=== PATIENT | female | born 1940 | race Caucasian/White ===

== ENCOUNTER → 2018-07-31 09:45 | Outpatient (CLI) | payer MEDICARE, SELFPAY ==
[2018-07-31 12:20] LABS: Absolute Neutrophil Count 5.6 X10^3/uL (2.0-7.7); Basophil# 0.03 X10^3/uL; Basophil% 0.3 % (0-1); Eosinophil# 0.19 X10^3/uL; Eosinophils% 2.2 % (0-5); Hematocrit 45.8 % (37-47); Hemoglobin 15.3 g/dl (12.0-15.0); Mean Corp Hgb Conc 33.4 g/gl (32-36); Mean Corpuscular Hgb 28.5 pg (27.0-32.0); Mean Corpuscular Volume 85.4 fL (81-99); Mean Platelet Vol. 9.8 fl (6.2-12.0); Monocyte# 0.66 X10^3/uL; Monocyte% 7.5 % (0-10); Neutrophil # 5.63 X10^3/uL (2.7-7.7); Neutrophil % 63.8 % (47-70); Platelet Count 238 K/mm3 (150-450); RBC Distribution Width CV 13.5 % (11.6-14.6); RBC Distribution Width SD 42.2 fl (35.1-43.9); Red Blood Count 5.36 M/mm3 (4.2-5.4); White Blood Count 8.8 K/mm3 (4.4-11.0)
[2018-07-31 12:24] LABS: Color, Urine Yellow (Yellow); Glucose, Dipstick Normal (Normal); Ketone-Dipstick Negative (Negative); Leukocyte Esterase-Dipstick Negative /ul (Negative); Nitrite-Dipstick Negative (Negative); Occult Blood-Urine Negative /ul (Negative); Protein-Dipstick Negative (Negative); Specific Gravity, Urine 1.015 (1.002-1.030); Urine Bilirubin Dipstick Negative (Negative); Urine Clarity Clear (Clear); Urine Urobilinogen Normal (Normal)
[2018-07-31 12:25] LABS: POSITIVE COUNT NO; POSITIVE DIFFERENTIAL NO; POSITIVE MORPHOLOGY NO
[2018-07-31 12:28] LABS: Cholesterol 207 mg/dL (200); High Density Lipoprotein 43 mg/dL; Triglycerides 232 mg/dL; Very Low Density Lipoprotein 46 mg/dL (5-40)
== END ==
PROVIDERS: Family Provider Family Medicine; PCP Family Medicine; Visit Provider Family Medicine
DX: Z00.00 Encounter for general adult medical examination without abnormal findings (principal); I10 Essential (primary) hypertension; E78.5 Hyperlipidemia, unspecified; I49.9 Cardiac arrhythmia, unspecified
CPT/HCPCS: 36415; 80061; 81002; 85025

== ENCOUNTER → 2018-09-19 07:55 | Outpatient (CLI) | payer MEDICARE, SELFPAY ==
--- NOTE | 2018-09-19 07:59 | BI_ITS ---
MAMMOGRAPHY - BILATERAL SCREENING REASON FOR EXAM: Female, 78 years old. Routine annual screening examination. PERTINENT HISTORY: Mother with breast cancer. TECHNIQUE: Digital bilateral breast guerline (3D mammographic acquisition) in the CC and MLO projections. 2-D mediolateral oblique (MLO) and craniocaudad (CC) views of both breasts were obtained. CAD: Full Field Digital Mammography with Computer Added Detection was performed. COMPARISON: Comparison is made with prior examination dated August 30, 2017 and August 04, 2016. FINDINGS: Breast Composition: There are scattered areas of fibroglandular density. There are no dominant masses or suspicious calcifications. Once again, there are multiple small breast nodules bilaterally. These are unchanged. No focal cluster microcalcification is seen. No other significant abnormalities are identified. There has been no significant change since the prior study. BI/SCREENING MAMM (CAD), BILAT IMPRESSION: Stable bilateral screening mammogram. Yearly follow-up mammogram recommended. (A) ASSESSMENT CATEGORY: BIRADS Category 2: Benign. A letter regarding these results will be sent to the patient by the facility within 30 days. Approximately 10% of breast cancers are not detected by mammography. A normal mammogram should not delay biopsy of a clinically suspicious abnormality. [id number] Electronically Signed: Sterling Garnica MD at 9:21 EST Tel [phone], Service support ,
== END ==
PROVIDERS: Family Provider Family Medicine; PCP Family Medicine; Referring Provider Family Medicine; Visit Provider Family Medicine
DX: Z12.31 Encounter for screening mammogram for malignant neoplasm of breast (principal)
CPT/HCPCS: 77063; 77067

== ENCOUNTER → 2019-05-24 09:19 | Outpatient (CLI) | payer MEDICARE, SELFPAY ==
[2019-01-31 08:18] VITALS: BMI 31.0
--- NOTE | 2019-05-24 09:25 | US_ITS ---
STUDY: RENAL ULTRASOUND - COMPLETE REASON FOR EXAM: Female, 79 years old. Recurring UTIs TECHNIQUE: Ultrasound evaluation of the kidneys was performed with real-time and static garcía-scale imaging. COMPARISON: None. FINDINGS: RIGHT KIDNEY: Normal location of the right kidney, which is normal in size. The right kidney measures 11.0 x 5.6 x 5.2 cm. There is a normal cortex of the right kidney. The renal cortex measures 1.0 cm. There is no right renal mass or cyst. There are no right renal calculi. There is no right hydronephrosis. DISTAL RIGHT URETER: There is non-visualization of the distal right ureter. There is no demonstrated right ureterovesical junction calculus. There is a visualized right ureteral jet. LEFT KIDNEY: Normal location of the left kidney, which is normal in size. The left kidney measures 12.1 x 4.6 x 4.8 cm. There is a normal cortex of the left kidney. The renal cortex measures 1.5 cm. There is a hyperechoic nodule in the inferior pole which needs further evaluation with CT or MRI. There are no left renal calculi. There is no left hydronephrosis. DISTAL LEFT URETER: There is non-visualization of the distal left ureter. There is no demonstrated left ureterovesical junction calculus. There is a visualized left ureteral jet. AORTA: There is no elongation or tortuosity of the abdominal aorta. I.V.C.: The IVC is patent. BLADDER: The bladder is incompletely distended. US/Kidney and Bladder IMPRESSION: No obstructive uropathy, there is a hyperechoic nodule in the inferior pole the left kidney measuring 1.5 cm. Further evaluation with CT or MRI recommended Electronically Signed: Douglas Acosta MD at 16:59 EDT , Service support ,
== END ==
PROVIDERS: Family Provider Family Medicine; PCP Family Medicine; Referring Provider Urology; Visit Provider Urology
DX: N39.0 Urinary tract infection, site not specified (principal)
CPT/HCPCS: 76770

== ENCOUNTER → 2019-06-05 07:25 | Outpatient (CLI) | payer MEDICARE, SELFPAY ==
[2019-01-31 08:18] VITALS: BMI 31.0
--- NOTE | 2019-06-05 07:28 | CT_ITS ---
STUDY: CT ABDOMEN AND PELVIS WITH AND WITHOUT CONTRAST REASON FOR EXAM: Female, 79 years old. Recurrent UTIs RADIATION DOSAGE (If Supplied By Facility): CTDIvol = ( 23.88 ) mGy, DLP = ( 3684.81 ) mGycm TECHNIQUE: Transaxial images were obtained from the dome of the diaphragm to the symphysis pubis without oral contrast. 100 IV Isovue 300 was administered. Sagittal and coronal images were reconstructed. Individualized dose optimization techniques were used for this CT. COMPARISON: Previous ultrasounds FINDINGS: The visualized lung bases are unremarkable. The visualized portions of the heart are within normal limits. There is decreased attenuation of the liver consistent with steatosis. There are surgical clips in the gallbladder fossa consistent with a prior cholecystectomy. Normal spleen, there is also a 1 cm accessory spleen noted. Normal pancreas. Normal bilateral adrenal glands. No obstructive uropathy, there is a nonobstructing 3 mm stone in the mid left kidney. There is age consistent cortical thinning in both kidneys with extrarenal pelves. The previously identified hyperechoic mass in the lower pole of the left kidney contains fat by CT and likely represents an angiomyolipoma. There is a small hiatal hernia. Normal small intestine. There are multiple colonic diverticula consistent with diverticulosis. The appendix is visualized and appears normal. Appendix best seen on coronal recon image 78. There is diffuse atherosclerotic calcification of the abdominal aorta, without a demonstrated aneurysm. Normal inferior vena cava. Normal retroperitoneum. Normal urinary bladder. There is absence of the uterus consistent with a prior hysterectomy. Normal abdominal wall. There are diffuse degenerative changes of the visualized lumbar spine, and pelvis. Nonspecific sclerotic foci noted in the iliac bones. CT/CT Abd/Pelvis W/WO Contrast IMPRESSION: No obstructive uropathy. Age consistent changes noted in both kidneys. There is nonobstructing left nephrolithiasis and a previously identified mass in the lower pole the left kidney contains fat and likely represents angiomyolipoma Fatty liver, no discrete lesion Colonic diverticulosis Hiatal hernia Degenerative bony changes Electronically Signed: Douglas Acosta MD at 8:15 EDT , Service support ,
[2019-06-05 07:55] LABS: CREATININE FINGERSTICK 0.7 mg/dL (0.55-1.02)
== END ==
PROVIDERS: Family Provider Family Medicine; PCP Family Medicine; Referring Provider Urology; Visit Provider Urology
DX: R93.41 Abnormal radiologic findings on diagnostic imaging of renal pelvis, ureter, or bladder (principal)
CPT/HCPCS: 74178; Q9967

== ENCOUNTER → 2019-08-07 08:32 | Outpatient (CLI) | payer MEDICARE, SELFPAY ==
[2019-01-31 08:18] VITALS: BMI 31.0
[2019-08-07 09:39] LABS: Absolute Lymphocyte Count 2.63 X10^3/uL (0.83-4.51); Absolute Neutrophil Count 4.9 X10^3/uL (2.0-7.7); Basophil# 0.06 X10^3/uL; Basophil% 0.7 % (0-1); Eosinophil# 0.37 X10^3/uL; Eosinophils% 4.3 % (0-5); Hematocrit 48.4 % (37-47); Hemoglobin 15.7 g/dL (12.0-15.0); Lymphocyte # 2.63 X10^3/ul (4.0); Lymphocyte % 30.3 % (19-41); Mean Corp Hgb Conc 32.4 g/dL (32-36); Mean Corpuscular Hgb 28.1 pg (27.0-32.0); Mean Corpuscular Volume 86.7 fL (81-99); Monocyte# 0.64 X10^3/uL; Monocyte% 7.4 % (0-10); NRBC Flagged by Analyzer 0 % (0-5); Neutrophil # 4.94 X10^3/uL (2.7-7.7); Platelet Count 242 K/mm3 (150-450); RBC Distribution Width CV 13.4 % (11.6-14.6); RBC Distribution Width SD 42.5 fl (35.1-43.9); Red Blood Count 5.58 M/mm3 (4.2-5.4); White Blood Count 8.7 K/mm3 (4.4-11.0)
[2019-08-07 09:40] LABS: Color, Urine Yellow (Yellow); Glucose, Dipstick Normal (Normal); Ketone-Dipstick Negative (Negative); Leukocyte Esterase-Dipstick Negative /ul (Negative); Nitrite-Dipstick Negative (Negative); Occult Blood-Urine Negative /ul (Negative); Protein-Dipstick Negative (Negative); Specific Gravity, Urine 1.015 (1.002-1.030); Urine Bilirubin Dipstick Negative (Negative); Urine Clarity Sl. Cloudy (Clear); Urine Urobilinogen Normal (Normal)
[2019-08-07 10:06] LABS: ALB/GLOB Ratio 0.9 RATIO (0.9-2.4); AST(SGOT) 17 U/L (15-37); Alanine Aminotransfer ALT/SGPT 27 U/L (13-56); Albumin, Serum 3.5 g/dL (3.2-5.0); Alkaline Phosphatase 67 U/L (45-117); Anion Gap 6 (5-15); BUN 16 mg/dL (7-18); BUN/Creat Ratio 20.3 RATIO (10-20); Calcium,Total 8.7 mg/dL (8.5-10.1); Chloride 105 mmol/L (98-107); Cholesterol 202 mg/dL (200); Creatinine, Serum 0.79 mg/dL (0.55-1.02); EST Glomerular Filtration Rate 75 mL/min (>60); Est Glom Filt Rate - Afr Amer 91 mL/min (>60); Glucose 97 mg/dL (74-106); High Density Lipoprotein 41 mg/dL; Potassium 4.2 mmol/L (3.5-5.1); Protein, Total 7.5 g/dL (6.4-8.2); Sodium Level 141 mmol/L (136-145); Triglycerides 245 mg/dL; Very Low Density Lipoprotein 49 mg/dL (5-40)
== END ==
PROVIDERS: Family Provider Family Medicine; PCP Family Medicine; Referring Provider Family Medicine
DX: Z00.00 Encounter for general adult medical examination without abnormal findings (principal); I10 Essential (primary) hypertension; E78.5 Hyperlipidemia, unspecified
CPT/HCPCS: 80053; 80061; 81002; 85025

== ENCOUNTER → 2019-09-20 08:32 | Outpatient (CLI) | payer MEDICARE, SELFPAY ==
[2019-01-31 08:18] VITALS: BMI 31.0
--- NOTE | 2019-09-20 08:34 | BI_ITS ---
MAMMOGRAPHY - BILATERAL SCREENING REASON FOR EXAM: Female, 79 years old. Routine annual screening examination. PERTINENT HISTORY: Mother with breast cancer. TECHNIQUE: Digital bilateral breast jean (3D mammographic acquisition) in the CC and MLO projections. 2-D mediolateral oblique (MLO) and craniocaudad (CC) views of both breasts were obtained. CAD: Full Field Digital Mammography with Computer Added Detection was performed. COMPARISON: Comparison is made with prior study dated September 19, 2018 and August 30, 2017. FINDINGS: Breast Composition: There are scattered areas of fibroglandular density. There are no dominant masses or suspicious calcifications. Once again, there are multiple small bilateral breast nodules. These are not changed since multiple prior studies. No other significant abnormalities are identified. There has been no significant change since the prior study. BI/SCREEN MAMM (CAD) W/JEAN BILAT IMPRESSION: Stable bilateral screening mammogram. Yearly follow-up mammogram recommended. (A) ASSESSMENT CATEGORY: BIRADS Category 2: Benign. A letter regarding these results will be sent to the patient by the facility within 30 days. Approximately 10% of breast cancers are not detected by mammography. A normal mammogram should not delay biopsy of a clinically suspicious abnormality. [id number] Electronically Signed: Sterling Garnica, at 10:22 EST , Service support ,
== END ==
PROVIDERS: Family Provider Family Medicine; PCP Family Medicine; Referring Provider Family Medicine; Visit Provider Family Medicine
DX: Z12.31 Encounter for screening mammogram for malignant neoplasm of breast (principal); Z80.3 Family history of malignant neoplasm of breast
CPT/HCPCS: 77063; 77067

== ENCOUNTER → 2020-08-14 12:26 | Outpatient (CLI) | payer MEDICARE, SELFPAY ==
[2019-09-26 14:40] VITALS: BMI 30.8
--- NOTE | 2020-08-14 12:29 | US_ITS ---
STUDY: RENAL ULTRASOUND - COMPLETE REASON FOR EXAM: Female, 80 years old. 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 COMPARISON: Comparison is made with prior study dated 05/24/2019. FINDINGS: RIGHT KIDNEY: Normal location of the right kidney, which is normal in size. The right kidney measures 11.6 cm x 6.1 cm x 5.8 cm. There is a normal cortex of the right kidney. The renal cortex measures 1.3 cm. There is no right renal mass or cyst. There are no right renal calculi. There is no right hydronephrosis. DISTAL RIGHT URETER: There is non-visualization of the distal right ureter. There is no demonstrated right ureterovesical junction calculus. There is no demonstrated right ureteral jet. LEFT KIDNEY: Normal location of the left kidney, which is normal in size. The left kidney measures 10.8 cm x 5.7 cm x 6.4 cm. There is a normal cortex of the left kidney. The renal cortex measures 1.8 cm. There is a 2.2 cm x 1.3 cm x 1.3 cm echogenic nodule in the lower pole of the left kidney suggestive of a benign angiomyolipoma. There are no left renal calculi. There is no left hydronephrosis. DISTAL LEFT URETER: There is non-visualization of the distal left ureter. There is no demonstrated left ureterovesical junction calculus. There is a visualized left ureteral jet. BLADDER: The distended urinary bladder has a volume of 382 ml. There is a normal wall thickness of the distended urinary bladder. There is no demonstrated mass within the urinary bladder. There are no demonstrated bladder calculi. US/Kidney and Bladder IMPRESSION: 2.2 cm x 1.3 cm x 1.3 cm echogenic nodule in the inferior pole of the left kidney as described. This most likely represents an angiomyolipoma. Electronically Signed: Sterling Garnica, at 14:54 EDT , Service support ,
== END ==
PROVIDERS: PCP Family Medicine; Referring Provider Urology; Visit Provider Urology
DX: D30.02 Benign neoplasm of left kidney (principal)
CPT/HCPCS: 76770

== ENCOUNTER → 2020-09-02 08:27 | Outpatient (CLI) | payer MEDICARE, SELFPAY ==
[2019-09-26 14:40] VITALS: BMI 30.8
[2020-09-02 08:54] LABS: Absolute Lymphocyte Count 3.25 X10^3/uL (0.83-4.51); Absolute Neutrophil Count 4.7 X10^3/uL (2.0-7.7); Basophil# 0.04 X10^3/uL; Basophil% 0.5 % (0-1); Eosinophil# 0.33 X10^3/uL; Eosinophils% 3.7 % (0-5); Hematocrit 49.6 % (37-47); Hemoglobin 15.6 g/dL (12.0-15.0); Lymphocyte # 3.25 X10^3/ul (4.0); Lymphocyte % 36.6 % (19-41); Mean Corp Hgb Conc 31.5 g/dL (32-36); Mean Corpuscular Hgb 27.4 pg (27.0-32.0); Mean Platelet Vol. 9.1 fl (6.2-12.0); Monocyte# 0.59 X10^3/uL; Monocyte% 6.6 % (0-10); NRBC Flagged by Analyzer 0 % (0-5); Neutrophil # 4.65 X10^3/uL (2.7-7.7); Neutrophil % 52.4 % (47-70); Platelet Count 248 K/mm3 (150-450); RBC Distribution Width CV 13.2 % (11.6-14.6); RBC Distribution Width SD 42.3 fl (35.1-43.9); White Blood Count 8.9 K/mm3 (4.4-11.0)
[2020-09-02 08:55] LABS: Color, Urine Yellow (Yellow); Glucose, Dipstick Normal (Normal); Ketone-Dipstick Negative (Negative); Leukocyte Esterase-Dipstick 25 /ul (Negative); Nitrite-Dipstick Positive (Negative); Occult Blood-Urine Negative /ul (Negative); Protein-Dipstick Negative (Negative); Specific Gravity, Urine 1.015 (1.002-1.030); Urine Bilirubin Dipstick Negative (Negative); Urine Clarity Clear (Clear); Urine Urobilinogen Normal (Normal)
[2020-09-02 09:22] LABS: Cholesterol 209 mg/dL (200); High Density Lipoprotein 44 mg/dL; Triglycerides 296 mg/dL; Very Low Density Lipoprotein 59 mg/dL (5-40)
== END ==
PROVIDERS: PCP Family Medicine; Referring Provider Family Medicine; Visit Provider Family Medicine
DX: Z00.00 Encounter for general adult medical examination without abnormal findings (principal); I10 Essential (primary) hypertension; E78.5 Hyperlipidemia, unspecified
CPT/HCPCS: 36415; 80061; 81002; 85025

== ENCOUNTER → 2020-10-15 15:30 | Outpatient (CLI) | payer MEDICARE, SELFPAY ==
[2019-09-26 14:40] VITALS: BMI 30.8
[2020-09-29 14:56] VITALS: BMI 30.3
--- NOTE | 2020-10-15 15:33 | BI_ITS ---
MAMMOGRAPHY - BILATERAL SCREENING REASON FOR EXAM: Female, 80 years old. Routine annual screening examination. PERTINENT HISTORY: Mother with breast cancer. TECHNIQUE: Digital bilateral breast jean (3D mammographic acquisition) in the CC and MLO projections. 2-D mediolateral oblique (MLO) and craniocaudad (CC) views of both breasts were obtained. CAD: Full Field Digital Mammography with Computer Added Detection was performed. COMPARISON: Comparison is made with prior study dated 09/20/2019 and 09/19/2018. FINDINGS: Breast Composition: There are scattered areas of fibroglandular density. There are no dominant masses or suspicious calcifications. Once again, there are multiple small bilateral breast nodules. These are unchanged. No other significant abnormalities are identified. There has been no significant change since the prior study. BI/SCREEN MAMM (CAD) W/JEAN BILAT IMPRESSION: Stable bilateral screening mammogram. Yearly follow-up mammogram recommended. (A) ASSESSMENT CATEGORY: BIRADS Category 2: Benign. A letter regarding these results will be sent to the patient by the facility within 30 days. Approximately 10% of breast cancers are not detected by mammography. A normal mammogram should not delay biopsy of a clinically suspicious abnormality. [id number] Electronically Signed: Sterling Garnica, at 8:01 EST , Service support ,
== END ==
PROVIDERS: PCP Family Medicine; Referring Provider Family Medicine; Visit Provider Family Medicine
DX: Z12.31 Encounter for screening mammogram for malignant neoplasm of breast (principal)
CPT/HCPCS: 77063; 77067

== ENCOUNTER → 2021-08-17 09:48 | Outpatient (CLI) | payer MEDICARE, SELFPAY ==
[2020-09-29 14:56] VITALS: BMI 30.3
--- NOTE | 2021-08-17 09:56 | US_ITS ---
INDICATION: Benign neoplasm of left kidney EXAMINATION: Ultrasound US Kidney(s) complete (eg, kidneys and bladder) TECHNIQUE: Bob scale and color doppler images were obtained of the kidneys. COMPARISON: 08/14/2020. FINDINGS: RIGHT KIDNEY: The right kidney measures 11.8 x 5.6 x 6.4 cm. Right renal cortex measures 1.2 cm.. There is no hydronephrosis. No shadowing calculus, focal lesion or perinephric collection is demonstrated. LEFT KIDNEY: The left kidney measures 11.4 x 4.6 x 6.4 cm. Left renal cortex measures 1.0 cm.. There is no hydronephrosis. No evidence of left renal stones visualized. There is a circumscribed hyperechoic lesion visualized in the lower pole of the left kidney measuring 1.8 x 1.7 x 1.5 cm. No evidence of posterior acoustic shadowing to suggest a stone, this was seen on the prior study where it had measured 2.2 x 1.3 x 1.3 cm URINARY BLADDER: Unremarkable anechoic internal echogenicity of the urinary bladder, no evidence of urinary bladder wall thickening is visualized, bilateral ureteral jets are visualized and unremarkable. The urinary bladder measures 10.9 x 7.5 x 9.6 cm with a prevoid volume of 411.13 mL. US/Kidney and Bladder IMPRESSION: Hyperechoic lesion in the lower pole of the left kidney demonstrates no significant increase in size in comparison to the prior study. Electronically Signed: Gabe Mantilla MD at 15:18 EDT Tel , Service support ,
== END ==
PROVIDERS: PCP Family Medicine; Referring Provider Urology; Visit Provider Urology
DX: D30.02 Benign neoplasm of left kidney (principal)
CPT/HCPCS: 76770

== ENCOUNTER → 2021-08-26 08:11 | Outpatient (CLI) | payer MEDICARE, SELFPAY ==
[2021-08-26 09:05] LABS: Absolute Lymphocyte Count 2.47 X10^3/uL (0.83-4.51); Absolute Neutrophil Count 4.8 X10^3/uL (2.0-7.7); Basophil# 0.04 X10^3/uL; Basophil% 0.5 % (0-1); Eosinophil# 0.38 X10^3/uL; Eosinophils% 4.6 % (0-5); Hematocrit 49.8 % (37-47); Hemoglobin 16.2 g/dL (12.0-15.0); Lymphocyte # 2.47 X10^3/ul (0.83-4.51); Lymphocyte % 29.6 % (19-41); Mean Corp Hgb Conc 32.5 g/dL (32-36); Mean Corpuscular Hgb 28.5 pg (27.0-32.0); Mean Corpuscular Volume 87.7 fL (81-99); Mean Platelet Vol. 9.5 fl (6.2-12.0); Monocyte# 0.65 X10^3/uL; Monocyte% 7.8 % (0-10); NRBC Flagged by Analyzer 0 % (0-5); Neutrophil # 4.77 X10^3/uL (2.7-7.7); Platelet Count 194 K/mm3 (150-450); RBC Distribution Width CV 14.2 % (11.6-14.6); RBC Distribution Width SD 45.9 fl (35.1-43.9); Red Blood Count 5.68 M/mm3 (4.2-5.4); White Blood Count 8.4 K/mm3 (4.4-11.0)
[2021-08-26 09:35] LABS: ALB/GLOB Ratio 0.8 RATIO (0.9-2.4); AST(SGOT) 14 U/L (15-37); Alanine Aminotransfer ALT/SGPT 32 U/L (13-56); Alkaline Phosphatase 56 U/L (45-117); Anion Gap 6 (5-15); BUN 17 mg/dL (7-18); BUN/Creat Ratio 18.9 RATIO (10-20); Calcium,Total 8.5 mg/dL (8.5-10.1); Chloride 104 mmol/L (98-107); Cholesterol 204 mg/dL (200); EST Glomerular Filtration Rate 64 mL/min (>60); Est Glom Filt Rate - Afr Amer 77 mL/min (>60); Globulin 3.9 g/dL (2.2-4.2); Glucose 103 mg/dL (74-106); High Density Lipoprotein 45 mg/dL; Potassium 4.1 mmol/L (3.5-5.1); Protein, Total 6.9 g/dL (6.4-8.2); Sodium Level 140 mmol/L (136-145); Triglycerides 214 mg/dL; Very Low Density Lipoprotein 43 mg/dL (5-40)
== END ==
PROVIDERS: PCP Family Medicine; Visit Provider Family Medicine
DX: Z12.31 Encounter for screening mammogram for malignant neoplasm of breast (principal); I10 Essential (primary) hypertension; E78.5 Hyperlipidemia, unspecified
CPT/HCPCS: 36415; 80053; 80061; 85025

== ENCOUNTER → 2021-10-16 10:03 | Outpatient (CLI) | payer MEDICARE, SELFPAY ==
--- NOTE | 2021-10-16 10:25 | BI_ITS ---
MAMMOGRAPHY - BILATERAL SCREENING REASON FOR EXAM: Female, 81 years old. Routine annual screening examination. PERTINENT HISTORY: Mother with breast cancer. TECHNIQUE: Digital bilateral breast jean (3D mammographic acquisition) in the CC and MLO projections. 2-D mediolateral oblique (MLO) and craniocaudad (CC) views of both breasts were obtained. CAD: Full Field Digital Mammography with Computer Added Detection was performed. COMPARISON: Comparison is made with prior study dated 10/15/2020. FINDINGS: Breast Composition: There are scattered areas of fibroglandular density. There are no dominant masses or suspicious calcifications. Once again, there are multiple small bilateral breast nodules. These are unchanged. No other significant abnormalities are identified. There has been no significant change since the prior study. BI/SCRN MAMM (CAD)W/JEAN BILAT IMPRESSION: Stable bilateral screening mammogram. Yearly follow-up mammogram recommended. (A) ASSESSMENT CATEGORY: BIRADS Category 2: Benign. A letter regarding these results will be sent to the patient by the facility within 30 days. Approximately 10% of breast cancers are not detected by mammography. A normal mammogram should not delay biopsy of a clinically suspicious abnormality. [id number] Electronically Signed: Sterling Garnica MD at 13:33 EST , Service support ,
== END ==
PROVIDERS: PCP Family Medicine; Referring Provider Family Medicine; Visit Provider Family Medicine
DX: Z12.31 Encounter for screening mammogram for malignant neoplasm of breast (principal); Z80.3 Family history of malignant neoplasm of breast
CPT/HCPCS: 77063; 77067

== ENCOUNTER → 2021-10-27 13:37 | Outpatient (CLI) | payer MEDICARE, SELFPAY ==
--- NOTE | 2021-10-27 13:40 | ECHOD_ITS ---
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 The study was technically difficult. Exam performed in department. Left Ventricle Normal LV size. Left ventricular systolic function is normal. The estimated ejection fraction is 65 %. No evidence for diastolic dysfunction. No regional wall motion abnormalities noted. Right Ventricle Normal RV size. Normal systolic function. Atria Normal left atrium. Normal right atrium. No doppler evidence for ASD. Mitral Valve There is mild mitral annular calcification. Normal mitral valve. Mild (1+) mitral valve insufficiency. Tricuspid Valve Normal tricuspid valve. Mild tricuspid valve insufficiency. Right ventricular systolic pressure estimated to be 32 mmHg. Aortic Valve Trisinus/trileaflet aortic valve. Mild focal aortic valve calcification. Pulmonic Valve The pulmonic valve is not well visualized. Trivial pulmonic valve insufficiency. Great Vessels Normal sized aortic root. Pericardium/Pleural No pericardial effusion. MMode/2D Measurements & Calculations LVIDd: 4.6 cm IVSd: 1.4 cm Ao root diam: 3.1 cm LVIDs: 3.0 cm LVPWd: 0.92 cm RVDd: 3.5 cm FS: 34.6 % LAV(MOD-bp): 48.8 ml LA A4 area: 17.5 cm2 LA dimension(2D): 4.0 cm LAV(MOD-bp) Indexed: 24.3 ml/m2 LAV(MOD-sp2): 49.2 ml LAV(MOD-sp4): 45.7 ml RA A4 area: 13.9 cm2 Doppler Measurements & Calculations MV E max conrado: 45.6 cm/sec Lat Peak E' Conrado: 8.9 cm/sec Med Peak E' Conrado: 5.7 cm/sec MV A max conrado: 72.4 cm/sec E/E' lat: 5.1 E/E' med: 8.0 MV E/A: 0.63 Ao V2 max: 130.6 cm/sec LV V1 max: 67.9 cm/sec PA V2 max: 87.9 cm/sec Ao max P.8 mmHg LV V1 max P.8 mmHg TR max conrado: 267.3 cm/sec TR max P.6 mmHg ECHO/Echo Complete Interpretation Summary The study was technically difficult. Left ventricular systolic function is normal. The estimated ejection fraction is 65 %. There is mild mitral annular calcification. Mild (1+) mitral valve insufficiency. Mild tricuspid valve insufficiency. Mild focal aortic valve calcification. Trivial pulmonic valve insufficiency. Right ventricular systolic pressure estimated to be 32 mmHg. No evidence for diastolic dysfunction. Ordering Physician: Aleida Kidd Referring Physician: Eliot Odom Performed By: Telly, Mela, RDCS, RVT
== END ==
PROVIDERS: PCP Family Medicine; Referring Provider Nurse Practitioner Gerontology; Visit Provider Nurse Practitioner Gerontology
DX: I36.1 Nonrheumatic tricuspid (valve) insufficiency (principal); I34.0 Nonrheumatic mitral (valve) insufficiency
CPT/HCPCS: 93306

== ENCOUNTER → 2022-11-03 | Outpatient (CLI) | payer MEDICARE, SELFPAY ==
[2022-11-03 11:26] LABS: AST(SGOT) 14 U/L (15-37); Alanine Aminotransfer ALT/SGPT 30 U/L (13-56); Albumin, Serum 3.2 g/dL (3.2-5.0); Alkaline Phosphatase 55 U/L (45-117); Bilirubin, Direct 0.14 mg/dL (0.00-0.30); Cholesterol 192 mg/dL (200); Globulin 3.9 g/dL (2.2-4.2); High Density Lipoprotein 38 mg/dL; Protein, Total 7.1 g/dL (6.4-8.2); Triglycerides 154 mg/dL; Very Low Density Lipoprotein 31 mg/dL (5-40)
== END | disposition home or self-care (01) ==
LOC: LAB 09:30
PROVIDERS: PCP Internal Medicine; Referring Provider Internal Medicine Cardiovascular Disease; Visit Provider Internal Medicine Cardiovascular Disease
DX: E78.00 Pure hypercholesterolemia, unspecified (principal)
CPT/HCPCS: 36415; 80061; 80076

== ENCOUNTER → 2022-11-16 | Outpatient (CLI) | payer MEDICARE, SELFPAY | END | disposition home or self-care (01) | LOC: PSN 10:28 | PROVIDERS: PCP Internal Medicine; Referring Provider Internal Medicine Cardiovascular Disease; Visit Provider Internal Medicine Cardiovascular Disease | DX: I49.3 Ventricular premature depolarization (principal) | CPT/HCPCS: 93225; 93226 ==

== ENCOUNTER → 2022-11-17 | Outpatient (CLI) | payer MEDICARE, SELFPAY ==
--- NOTE | 2022-11-17 12:14 | BI_ITS ---
MAMMOGRAPHY - BILATERAL SCREENING REASON FOR EXAM: Female, 82 years old. Routine annual screening examination. PERTINENT HISTORY: Mother with breast cancer. Remote left excisional breast biopsy. TECHNIQUE: Digital bilateral breast jean (3D mammographic acquisition) in the CC and MLO projections. 2-D mediolateral oblique (MLO) and craniocaudad (CC) views of both breasts were obtained. CAD: Full Field Digital Mammography with Computer Added Detection was performed. COMPARISON: Comparison is made with prior study dated 10/16/2021 and 10/15/2020. FINDINGS: Breast Composition: There are scattered areas of fibroglandular density. There are no dominant masses or suspicious calcifications. Once again, there are multiple tiny bilateral breast nodules. These are unchanged. No other significant abnormalities are identified. There has been no significant change since the prior study. BI/SCRN MAMM (CAD)W/JEAN BILAT IMPRESSION: Stable bilateral screening mammogram. Correlation with ultrasound of both breasts is recommended for further evaluation. ASSESSMENT CATEGORY: BIRADS Category 0: Incomplete. Need additional imaging evaluation. A letter regarding these results will be sent to the patient by the facility within 30 days. Approximately 10% of breast cancers are not detected by mammography. A normal mammogram should not delay biopsy of a clinically suspicious abnormality. [id number] Electronically Signed: Sterling Garnica MD at 14:14 EST ,
== END | disposition home or self-care (01) ==
LOC: OPBI 12:13
PROVIDERS: PCP Internal Medicine; Visit Provider Internal Medicine
DX: Z12.31 Encounter for screening mammogram for malignant neoplasm of breast (principal); Z80.3 Family history of malignant neoplasm of breast
CPT/HCPCS: 77063; 77067

== ENCOUNTER → 2022-11-22 | Outpatient (CLI) | payer MEDICARE, SELFPAY ==
--- NOTE | 2022-11-22 13:40 | US_ITS ---
STUDY: ULTRASOUND BREAST - RIGHT REASON FOR EXAM: Female, 82 years old. Bilateral breast nodules. TECHNIQUE: Axial and longitudinal images of the RIGHT breast were performed with a high resolution ultrasound transducer. # OF IMAGES: 147 COMPARISON: Comparison is made with prior mammogram dated 11/17/2022.. FINDINGS: RIGHT Breast: Multiple tiny cysts are seen. The largest cyst in the right breast measures 4 mm x 5 mm x 3 mm. There is also evidence of dilated ducts. Incidental note is also made of 2 benign appearing right axillary lymph nodes. IMPRESSION: Multiple small cysts are seen in the right breast as well as dilated subareolar ducts. ASSESSMENT CATEGORY: BIRADS Category 2: Benign. A letter regarding these results will be sent to the patient by the facility within 30 days. Electronically Signed: Sterling Garnica MD at 9:05 EST , STUDY: ULTRASOUND BREAST - LEFT REASON FOR EXAM: Female, 82 years old. Small breast nodules. TECHNIQUE: Axial and longitudinal images of the LEFT breast were performed with a high resolution ultrasound transducer. # OF IMAGES: 147 COMPARISON: Comparison is made with prior mammogram dated 11/17/2022. FINDINGS: LEFT Breast: Multiple small cysts are seen. The largest cyst measures 6 mm x 7 mm x 4 mm. The patient has a palpable lump in the superior sternal region in the midline. This corresponds to a 1.8 cm x 2.3 cm x 0.7 cm hypoechoic nodule. Clinical correlation recommended. US/Breast Complete Unilateral IMPRESSION: Multiple small cysts. A palpable lump was felt by the patient in the midline overlying the sternal region. This measures 1.8 cm x 2.3 cm x 0.7 cm. Clinical correlation is recommended. ASSESSMENT CATEGORY: BIRADS Category 2: Benign. A letter regarding these results will be sent to the patient by the facility within 30 days. Electronically Signed: Sterling Garnica MD at 9:07 EST ,
--- NOTE | 2022-11-22 13:40 | US_ITS ---
STUDY: ULTRASOUND BREAST - RIGHT REASON FOR EXAM: Female, 82 years old. Bilateral breast nodules. TECHNIQUE: Axial and longitudinal images of the RIGHT breast were performed with a high resolution ultrasound transducer. # OF IMAGES: 147 COMPARISON: Comparison is made with prior mammogram dated 11/17/2022.. FINDINGS: RIGHT Breast: Multiple tiny cysts are seen. The largest cyst in the right breast measures 4 mm x 5 mm x 3 mm. There is also evidence of dilated ducts. Incidental note is also made of 2 benign appearing right axillary lymph nodes. IMPRESSION: Multiple small cysts are seen in the right breast as well as dilated subareolar ducts. ASSESSMENT CATEGORY: BIRADS Category 2: Benign. A letter regarding these results will be sent to the patient by the facility within 30 days. Electronically Signed: Sterling Garnica MD at 9:05 EST , STUDY: ULTRASOUND BREAST - LEFT REASON FOR EXAM: Female, 82 years old. Small breast nodules. TECHNIQUE: Axial and longitudinal images of the LEFT breast were performed with a high resolution ultrasound transducer. # OF IMAGES: 147 COMPARISON: Comparison is made with prior mammogram dated 11/17/2022. FINDINGS: LEFT Breast: Multiple small cysts are seen. The largest cyst measures 6 mm x 7 mm x 4 mm. The patient has a palpable lump in the superior sternal region in the midline. This corresponds to a 1.8 cm x 2.3 cm x 0.7 cm hypoechoic nodule. Clinical correlation recommended. US/Breast Complete Unilateral IMPRESSION: Multiple small cysts. A palpable lump was felt by the patient in the midline overlying the sternal region. This measures 1.8 cm x 2.3 cm x 0.7 cm. Clinical correlation is recommended. ASSESSMENT CATEGORY: BIRADS Category 2: Benign. A letter regarding these results will be sent to the patient by the facility within 30 days. Electronically Signed: Sterling Garnica MD at 9:07 EST ,
== END | disposition home or self-care (01) ==
LOC: OPUS 13:36
PROVIDERS: PCP Internal Medicine; Visit Provider Internal Medicine
DX: N60.01 Solitary cyst of right breast (principal)
CPT/HCPCS: 76641; 76642

== ENCOUNTER 2022-12-14 06:31 | Outpatient (CLI) | payer MEDICARE, SELFPAY ==
--- NOTE | 2022-12-15 16:21 | STRESSREP ---
Stress Test Report Pharmacologic myocardial perfusion stress test. 82-year-old lady with a history of ventricular ectopy Resting EKG demonstrates sinus rhythm with a rate of 68 bpm. Resting blood pressure is 152/70 mmHg. 0.4 mg of regadenoson was infused per usual protocol followed by rapid intravenous saline flush injection. Continuous EKG monitoring was performed. The maximum heart rate was 96 bpm which was 69% of max impacted heart rate the maximum workload was 1 metabolic equivalent. At rest there were no ST or T wave changes noted to suggest ischemia and at peak infusion nonspecific ST changes were noted which did not meet the criteria for ischemia. No clinical angina is noted. Occasional ventricular ectopy beats only were noted. The final blood pressure was 138/84 mmHg. Myocardial perfusion protocol. 11.4 mCi of technetium 99m sestamibi was injected at rest. 0.4 mg of regadenoson was infused per usual protocol. At peak infusion 33.7 mCi of technetium 99m sestamibi was injected stress images were obtained stress and rest images were reconstructed and compared in the short axis vertical long and horizontal long axis. Gated images were also obtained. Perfusion SPECT analysis: Review of the stress images demonstrate normal uptake of tracer noted in all areas of the myocardium. The resting images similar demonstrated normal uptake of tracer noted in all areas of the myocardium. No areas of reversibility are noted to suggest ischemia and no previous infarct is noted. There is some bowel attenuation artifact noted Gated SPECT analysis: The gated ejection fraction is 62%. Conclusion: Normal pharmacologic myocardial perfusion stress test. Preserved ejection fraction.
== END 2022-12-14 23:59 | disposition home or self-care (01) ==
LOC: CVS 06:31
PROVIDERS: PCP Internal Medicine; Visit Provider Internal Medicine Cardiovascular Disease
DX: R00.0 Tachycardia, unspecified (principal); I49.3 Ventricular premature depolarization; R94.31 Abnormal electrocardiogram [ECG] [EKG]
CPT/HCPCS: 78452; 93017; A9500; A4216; J2785

== ENCOUNTER → 2023-03-21 | Outpatient (CLI) | payer MEDICARE, SELFPAY | END | disposition home or self-care (01) | LOC: PSN 08:57 | PROVIDERS: PCP Internal Medicine; Referring Provider Nurse Practitioner Family; Visit Provider Nurse Practitioner Family | DX: I47.1 Supraventricular tachycardia (principal); I49.3 Ventricular premature depolarization; R94.31 Abnormal electrocardiogram [ECG] [EKG] | CPT/HCPCS: 93225; 93226 ==

== ENCOUNTER → 2023-04-12 | Outpatient (CLI) | payer MEDICARE, SELFPAY ==
[2023-04-12 08:38] LABS: Absolute Lymphocyte Count 3.04 X10^3/uL (0.83-4.51); Absolute Neutrophil Count 4.9 X10^3/uL (2.0-7.7); Basophil# 0.06 X10^3/uL; Basophil% 0.7 % (0-1); Eosinophil# 0.26 X10^3/uL; Eosinophils% 2.9 % (0-5); Hematocrit 50.3 % (37-47); Hemoglobin 16.2 g/dL (12.0-15.0); Lymphocyte # 3.04 X10^3/ul (0.83-4.51); Lymphocyte % 34.4 % (19-41); Mean Corp Hgb Conc 32.2 g/dL (32-36); Mean Corpuscular Hgb 28.3 pg (27.0-32.0); Mean Corpuscular Volume 87.8 fL (81-99); Mean Platelet Vol. 10.1 fl (6.2-12.0); Monocyte% 6.8 % (0-10); NRBC Flagged by Analyzer 0 % (0-5); Neutrophil # 4.87 X10^3/uL (2.7-7.7); Platelet Count 244 K/mm3 (150-450); RBC Distribution Width CV 13.6 % (11.6-14.6); RBC Distribution Width SD 43.7 fl (35.1-43.9); Red Blood Count 5.73 M/mm3 (4.2-5.4); White Blood Count 8.9 K/mm3 (4.4-11.0)
[2023-04-12 09:06] LABS: Vitamin B12 404 pg/mL (211-911); Vitamin D,25 Hydroxy 44.4 ng/mL
[2023-04-12 09:10] LABS: ALB/GLOB Ratio 0.9 RATIO (0.9-2.4); AST(SGOT) 14 U/L (15-37); Alanine Aminotransfer ALT/SGPT 24 U/L (13-56); Albumin, Serum 3.4 g/dL (3.2-5.0); Alkaline Phosphatase 61 U/L (45-117); Anion Gap 8 (5-15); BUN 17 mg/dL (7-18); Calcium,Total 8.7 mg/dL (8.5-10.1); Chloride 107 mmol/L (98-107); EST Glomerular Filtration Rate 64 mL/min (>60); Est Glom Filt Rate - Afr Amer 77 mL/min (>60); Globulin 3.8 g/dL (2.2-4.2); Glucose 105 mg/dL (74-106); Protein, Total 7.2 g/dL (6.4-8.2); Sodium Level 143 mmol/L (136-145)
== END | disposition home or self-care (01) ==
LOC: LAB 07:54
PROVIDERS: PCP Internal Medicine; Referring Provider Internal Medicine; Visit Provider Internal Medicine
DX: R94.31 Abnormal electrocardiogram [ECG] [EKG] (principal); I38 Endocarditis, valve unspecified; R00.0 Tachycardia, unspecified; E78.2 Mixed hyperlipidemia; E53.8 Deficiency of other specified B group vitamins; E55.9 Vitamin D deficiency, unspecified
CPT/HCPCS: 36415; 80053; 82306; 82607; 84443; 85025

== ENCOUNTER → 2023-05-31 | Outpatient (CLI) | payer MEDICARE, SELFPAY | END | disposition home or self-care (01) | LOC: PSN 09:20 | PROVIDERS: PCP Internal Medicine; Referring Provider Nurse Practitioner Gerontology; Visit Provider Nurse Practitioner Gerontology | DX: I49.3 Ventricular premature depolarization (principal) | CPT/HCPCS: 93225; 93226 ==

== ENCOUNTER → 2023-06-13 | Outpatient (CLI) | payer MEDICARE, SELFPAY ==
--- NOTE | 2023-06-13 11:00 | RAD_ITS ---
INDICATION: Amiodarone EXAMINATION/TECHNIQUE: X-RAY - XR Chest 2 Views COMPARISON: None. FINDINGS: The lungs are clear. Tortuous and calcified thoracic aorta. The heart is borderline enlarged. No pleural effusion or pneumothorax. Degenerative changes of the thoracic spine. Chronic fracture deformities of the proximal humeral heads. RAD/Chest PA and Lateral IMPRESSION: No acute radiographic abnormalities. Chronic fracture deformities of the proximal humeral heads. Electronically Signed: Gary Castro MD at 2:31 EDT ,
== END | disposition home or self-care (01) ==
LOC: RAD 10:57
PROVIDERS: PCP Internal Medicine; Referring Provider Nurse Practitioner Gerontology; Visit Provider Nurse Practitioner Gerontology
DX: Z79.899 Other long term (current) drug therapy (principal)
CPT/HCPCS: 71046

== ENCOUNTER → 2023-06-21 | Outpatient (CLI) | payer MEDICARE, SELFPAY ==
--- NOTE | 2023-06-21 10:00 | CDU_ITS ---
Reason For Study: lightheaded Rt. Velocities/BP Lt. Velocities/BP Prox CCA 72.1/11.6 cm/sec. Prox CCA 92.7/11.3 cm/sec. Mid CCA 75.9/7.8 cm/sec. Mid CCA 81.7/12.4 cm/sec. Dist CCA 80.6/9.7 cm/sec. Dist CCA 87.2/9.1 cm/sec. Prox ICA 47.5/8.8 cm/sec. Prox ICA 49.8/9.1 cm/sec. Mid ICA 71.1/12.6 cm/sec. Mid ICA 70.7/15.7 cm/sec. Dist ICA 49.8/12.2 cm/sec. Dist ICA 75.1/20.1 cm/sec. Rt. ICA/CCA = .9. Lt. ICA/CCA = .9. Prox ECA 65.5/5.0 cm/sec. Prox ECA 54.2/4.7 cm/sec. Rt. Vert. 38.8/5.8 cm/sec. Lt. Vert. 50.9/6.9 cm/sec. Right Extracranial There is intimal thickening but no significant atherosclerotic plaque noted in the right common carotid artery. There is heterogeneous, irregular atherosclerotic plaque noted in the right internal carotid artery. There is heterogeneous, irregular atherosclerotic plaque noted in the right external carotid artery. Antegrade flow is noted in the right vertebral artery. Left Extracranial There is intimal thickening but no significant atherosclerotic plaque noted in the left common carotid artery. There is heterogeneous, irregular atherosclerotic plaque noted in the left internal carotid artery. There is intimal thickening but no significant atherosclerotic plaque noted in the left external carotid artery. Antegrade flow is noted in the left vertebral artery. Procedure Carotid Duplex 11640. This is a Carotid Duplex examination using B-mode, color flow and specral Doppler. The exam was diagnostic. Exam performed in department. VL/Carotid Duplex Ultrasound Interpretation Summary Mild (<50%) stenosis right extracranial internal carotid. Mild (<50%) stenosis left extracranial internal carotid. Patent and antegrade vertebrals bilaterally. Ordering Physician: Aleida Kidd Performed By: Arnol Keita RVT
== END | disposition home or self-care (01) ==
LOC: CVS 09:58
PROVIDERS: PCP Internal Medicine; Referring Provider Nurse Practitioner Gerontology; Visit Provider Nurse Practitioner Gerontology
DX: R42 Dizziness and giddiness (principal)
CPT/HCPCS: 93880

== ENCOUNTER → 2023-07-01 | Outpatient (CLI) | payer MEDICARE, SELFPAY ==
--- NOTE | 2023-07-02 07:59 | PFTCOMP ---
COMPLETE PULMONARY FUNCTION TEST INTERPRETATION Brief HPI: Patient is an 83-year-old female, currently under the care of Aleida Kidd, who presents to [facility] for complete pulmonary function tests secondary to diagnosis of dizziness and giddiness. Respiratory therapist reports good effort and reproducible results. Interpretation: Forced expiration spirometry shows a mild large airways obstructive ventilatory defect with an FEV1 of 98% predicted. There is a significant bronchodilator response in FVC and FEV1 by strict ATS criteria. Spirograms are of good quality and plateau slowly, indicating slowly emptying areas of the lungs. The respiratory flow volume loop shows decreased expiratory flow rates at high lung volumes consistent with small airways obstruction. Lung volumes by body plethysmography show a slightly decreased total lung capacity at 4.19 L, 77% predicted. All other lung volumes are within normal limits. Diffusion capacity by carbon monoxide is normal at 77% predicted. The airway resistance is normal. No previous pulmonary function tests were available for review. Impression: Fully reversible mild large airways obstructive ventilatory defect
== END | disposition home or self-care (01) ==
PROVIDERS: PCP Internal Medicine; Referring Provider Nurse Practitioner Gerontology; Visit Provider Nurse Practitioner Gerontology
DX: Z79.899 Other long term (current) drug therapy (principal)
CPT/HCPCS: 94060; 94726; 94729

== ENCOUNTER → 2023-07-06 | Outpatient (CLI) | payer MEDICARE, SELFPAY ==
--- NOTE | 2023-07-06 09:27 | VDLE_ITS ---
Reason For Study: Left leg swelling RIGHT LEFT CFV is compressible, spontaneous, phasic, GSV is normal. competent and demonstrates normal CFV is compressible, spontaneous, phasic, augmentation. competent, and demonstrates normal Procedure augmentation. This is a venous duplex using B-mode, color FV is compressible, spontaneous, phasic, flow and spectral Doppler. competent and demonstrates normal Exam performed in department. augmentation. A preliminary report was called and/or faxed POP V is compressible, spontaneous, phasic, to Dr. Nicole. competent and demonstrates normal augmentation. T/P Trunk is compressible. PTV is compressible. LT PerV is compressible. Nonvascularized structure noted in the left popliteal fossa that measures 0.78 x 1.36 x 4.20 cm. VL/Venous Duplex US, Unilateral Interpretation Summary There is no evidence of left lower extremity deep vein thrombosis. Left great s aphenous vein appears patent and compressible segmentally. Left popliteal fossa 4.2 x 0.78 x 1.36 cm diameter 9 vascular hypoechoic structure consistent with a Rollins's cyst. Clinical correlation would be appropriate. Normal flow patterns right common femoral vein Ordering Physician: Modesta Nicole Referring Physician: Modesta Nicole Performed By: Nataliya Norris RVT
== END | disposition home or self-care (01) ==
LOC: CVS 09:27
PROVIDERS: PCP Internal Medicine; Referring Provider Internal Medicine; Visit Provider Internal Medicine
DX: M79.89 Other specified soft tissue disorders (principal)
CPT/HCPCS: 93971

== ENCOUNTER → 2023-08-31 | Outpatient (CLI) | payer MEDICARE, SELFPAY ==
--- NOTE | 2023-08-31 12:46 | US_ITS ---
INDICATION: BENIGN RENAL MASS EXAMINATION: Ultrasound US Kidney(s) complete (eg, kidneys and bladder) TECHNIQUE: Bob scale and color doppler images were obtained of the kidneys. COMPARISON: Renal ultrasound 08/14/2020, CT abdomen and pelvis 06/05/2019 FINDINGS: RIGHT KIDNEY: 11.5 x 6.1 x 5.5 cm. There is no hydronephrosis. No shadowing calculus, focal lesion or perinephric collection is demonstrated. LEFT KIDNEY: 12.0 x 5.6 x 4.7 cm. There is no hydronephrosis. Echogenic lower pole lesion measures 1.7 x 1.6 x 1.2 cm URINARY BLADDER: No acute abnormality. US/Kidney and Bladder IMPRESSION: No hydronephrosis. 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 Electronically Signed: Valentino Wellignton MD at 0:09 EDT ,
== END | disposition home or self-care (01) ==
LOC: US 12:45
PROVIDERS: PCP Internal Medicine; Referring Provider Urology; Visit Provider Urology
DX: D30.00 Benign neoplasm of unspecified kidney (principal)
CPT/HCPCS: 76770

== ENCOUNTER → 2023-10-17 | Outpatient (CLI) | payer MEDICARE, SELFPAY ==
[2023-10-17 12:56] LABS: Cholesterol 221 mg/dL (200); High Density Lipoprotein 50 mg/dL; Triglycerides 161 mg/dL; Very Low Density Lipoprotein 32 mg/dL (5-40)
== END | disposition home or self-care (01) ==
LOC: MTLAB 11:09
PROVIDERS: PCP Internal Medicine; Referring Provider Internal Medicine Cardiovascular Disease; Visit Provider Internal Medicine Cardiovascular Disease
DX: E78.2 Mixed hyperlipidemia (principal)
CPT/HCPCS: 36415; 80061

== ENCOUNTER → 2024-03-20 | Outpatient (CLI) | payer MEDICARE, SELFPAY ==
[2024-03-20 09:59] LABS: Absolute Neutrophil Count 5.3 X10^3/uL (2.0-7.7); Basophil# 0.05 X10^3/uL; Basophil% 0.6 % (0-1); Eosinophil# 0.16 X10^3/uL; Hematocrit 47.7 % (37-47); Hemoglobin 15.3 g/dL (12.0-15.0); Lymphocyte % 25.8 % (19-41); Mean Corp Hgb Conc 32.1 g/dL (32-36); Mean Corpuscular Hgb 27.8 pg (27.0-32.0); Mean Corpuscular Volume 86.7 fL (81-99); Mean Platelet Vol. 9.8 fl (6.2-12.0); Monocyte# 0.53 X10^3/uL; Monocyte% 6.5 % (0-10); NRBC Flagged by Analyzer 0 % (0-5); Neutrophil # 5.27 X10^3/uL (2.7-7.7); Neutrophil % 64.9 % (47-70); Platelet Count 249 K/mm3 (150-450); RBC Distribution Width CV 13.8 % (11.6-14.6); White Blood Count 8.1 K/mm3 (4.4-11.0)
[2024-03-20 10:36] LABS: ALB/GLOB Ratio 0.9 RATIO (0.9-2.4); AST(SGOT) 20 U/L (15-37); Alanine Aminotransfer ALT/SGPT 102 U/L (13-56); Albumin, Serum 3.4 g/dL (3.2-5.0); Alkaline Phosphatase 68 U/L (45-117); Anion Gap 7 (5-15); BUN 16 mg/dL (7-18); BUN/Creat Ratio 19.5 RATIO (10-20); Calcium,Total 8.8 mg/dL (8.5-10.1); Chloride 109 mmol/L (98-107); Cholesterol 204 mg/dL (200); Creatinine, Serum 0.82 mg/dL (0.55-1.02); EST Glomerular Filtration Rate 71 mL/min (>60); Est Glom Filt Rate - Afr Amer 86 mL/min (>60); Free T3 2.7 pg/mL (2.18-3.98); Globulin 3.8 g/dL (2.2-4.2); Glucose 112 mg/dL (74-106); High Density Lipoprotein 45 mg/dL; Potassium 3.7 mmol/L (3.5-5.1); Protein, Total 7.2 g/dL (6.4-8.2); Sodium Level 142 mmol/L (136-145); T4 Free Direct 1.51 ng/dL (0.76-1.46); Thyroid Stim Hormone (TSH) 0.66 uIU/mL (0.358-3.74); Triglycerides 142 mg/dL; Very Low Density Lipoprotein 28 mg/dL (5-40)
== END | disposition home or self-care (01) ==
LOC: MTLAB 09:05
PROVIDERS: PCP Internal Medicine; Referring Provider Internal Medicine; Visit Provider Internal Medicine
DX: E78.2 Mixed hyperlipidemia (principal); I48.91 Unspecified atrial fibrillation; Z79.899 Other long term (current) drug therapy; E55.9 Vitamin D deficiency, unspecified; Z13.220 Encounter for screening for lipoid disorders
CPT/HCPCS: 36415; 80053; 80061; 82306; 84439; 84443; 84481; 85025

== ENCOUNTER → 2024-03-21 | Outpatient (CLI) | payer MEDICARE, SELFPAY | END | disposition home or self-care (01) | LOC: PSN 08:52 | PROVIDERS: PCP Internal Medicine; Referring Provider Nurse Practitioner Gerontology; Visit Provider Nurse Practitioner Gerontology | DX: I49.3 Ventricular premature depolarization (principal) | CPT/HCPCS: 93225; 93226 ==

== ENCOUNTER → 2024-09-20 | Outpatient (CLI) | payer MEDICARE, SELFPAY ==
--- NOTE | 2024-09-20 13:35 | ECHOD_ITS ---
Reason For Study: MITRAL REGURGITATION Procedure This was a 2D Doppler, Color Flow transthoracic echocardiogram. The study was technically difficult. Exam performed in department. Left Ventricle Normal LV size. Left ventricular systolic function is normal. The left ventricular ejection fraction is 65 %. Stage 1 diastolic dysfunction. No regional wall motion abnormalities noted. Right Ventricle Normal RV size. Normal systolic function. Atria Normal left atrium. Normal right atrium. Mitral Valve Normal mitral valve. Tricuspid Valve Normal tricuspid valve. Mild (1+) tricuspid valve insufficiency. Pulmonary artery systolic pressure is 40 mmHg. Aortic Valve Trisinus/trileaflet aortic valve. Mild focal aortic valve calcification. Pulmonic Valve Normal pulmonic valve. Great Vessels Normal aortic root. The pulmonary artery is normal size. Inferior vena cava collapse with respiration. Pericardium/Pleural No pericardial effusion. MMode/2D Measurements & Calculations LVIDd: 4.6 cm IVSd: 1.0 cm LVOT diam: 2.1 cm LVIDs: 2.7 cm LVPWd: 1.1 cm LVOT area: 3.5 cm2 RVDd: 3.4 cm FS: 41.8 % asc Aorta Diam: 3.5 cm LAV(MOD-bp): 46.9 ml LVAd ap4: 25.7 cm2 LAV(MOD-bp) Indexed: 23.2 ml/m2 LVLd ap4: 7.5 cm LAV(MOD-sp2): 52.1 ml EDV(MOD-sp4): 74.9 ml LAV(MOD-sp4): 40.2 ml EDV(sp4-el): 74.6 ml LVAs ap4: 13.3 cm2 LVLs ap4: 5.8 cm ESV(MOD-sp4): 26.1 ml ESV(sp4-el): 25.8 ml EF(MOD-sp4): 65.2 % EF(sp4-el): 65.4 % LVAd ap2: 19.3 cm2 SV(MOD-sp4): 48.8 ml SV(MOD-sp2): 29.8 ml LVLd ap2: 7.2 cm SI(MOD-sp4): 24.2 ml/m2 SI(MOD-sp2): 14.8 ml/m2 EDV(MOD-sp2): 44.2 ml EDV(sp2-el): 44.1 ml LVAs ap2: 9.9 cm2 LVLs ap2: 5.9 cm ESV(MOD-sp2): 14.4 ml ESV(sp2-el): 14.3 ml EF(MOD-sp2): 67.4 % SV(sp4-el): 48.8 ml Ao sinus diam: 3.[address] Junction: 2.7 cm LA dimension(2D): 4.5 cm LA A4 area: 16.4 cm2 RA A4 area: 14.1 cm2 TAPSE: 1.7 cm Time Measurements MV dec time: 0.28 sec Doppler Measurements & Calculations MV E max conrado: 59.3 cm/sec Lat Peak E' Conrado: 11.7 cm/sec Med Peak E' Conrado: 7.2 cm/sec MV A max conrado: 84.3 cm/sec E/E' lat: 5.1 E/E' med: 8.2 MV E/A: 0.70 MV dec slope: 214.9 cm/sec2 Ao V2 max: 168.9 cm/sec LV V1 max: 121.8 cm/sec Ao max P.4 mmHg LV V1 max P.9 mmHg Ao V2 mean: 125.1 cm/sec LV V1 mean P.8 mmHg Ao mean P.8 mmHg LV V1 mean: 93.9 cm/sec Ao V2 VTI: 37.9 cm LV V1 VTI: 26.0 cm AV (velocity ratio): 0.69 ROWDY(I,D): 2.4 cm2 ROWDY(V,D): 2.5 cm2 SV(LVOT): 89.8 ml PA V2 max: 94.8 cm/sec TR max conrado: 301.9 cm/sec TR max P.5 mmHg ECHO/Echo Complete Interpretation Summary Normal LV size. Left ventricular systolic function is normal. The left ventricular ejection fraction is 65 %. Pulmonary artery systolic pressure is 40 mmHg. Stage 1 diastolic dysfunction. Ordering Physician: Aleida Kidd Referring Physician: Modesta Nicole M.D. Performed By: Michelle Locke RDCS
--- NOTE | 2024-09-20 14:23 | RAD_ITS ---
INDICATION: Amiodarone EXAMINATION/TECHNIQUE: X-RAY - XR Chest 2 Views COMPARISON: June 13, 2023 FINDINGS: LINES/DEVICES: None. LUNGS: No new consolidation, edema or effusion. There are stable left basilar streaky opacities. No pneumothorax. MEDIASTINUM AND CARDIOVASCULAR STRUCTURES: Cardiac silhouette not enlarged. Central airways and mediastinal contour are unremarkable. BONES AND SOFT TISSUES: There are degenerative changes of the shoulders. There are stable humeral head deformity suggestive of old injuries. RAD/Chest PA and Lateral IMPRESSION: No radiographic evidence of acute cardiopulmonary disease. Electronically Signed: Amee Meléndez MD at 9:02 EST ,
--- NOTE | 2024-09-20 14:23 | RAD_ITS ---
INDICATION: Amiodarone EXAMINATION/TECHNIQUE: X-RAY - XR Chest 2 Views COMPARISON: June 13, 2023 FINDINGS: LINES/DEVICES: None. LUNGS: No new consolidation, edema or effusion. There are stable left basilar streaky opacities. No pneumothorax. MEDIASTINUM AND CARDIOVASCULAR STRUCTURES: Cardiac silhouette not enlarged. Central airways and mediastinal contour are unremarkable. BONES AND SOFT TISSUES: There are degenerative changes of the shoulders. There are stable humeral head deformity suggestive of old injuries. RAD/Chest PA and Lateral IMPRESSION: No radiographic evidence of acute cardiopulmonary disease. Electronically Signed: Amee Meléndez MD at 9:02 EST ,
== END | disposition home or self-care (01) ==
LOC: CVS 13:33
PROVIDERS: PCP Internal Medicine; Referring Provider Nurse Practitioner Gerontology; Visit Provider Nurse Practitioner Gerontology
DX: I34.0 Nonrheumatic mitral (valve) insufficiency (principal); Z79.899 Other long term (current) drug therapy
CPT/HCPCS: 71046; 93306

== ENCOUNTER → 2024-10-01 | Outpatient (CLI) | payer MEDICARE, SELFPAY ==
--- NOTE | 2024-10-01 14:51 | CT_ITS ---
CT LEFT LOWER EXTREMITY WITH 3-D IMAGING CLINICAL INDICATION: Templating for left TKA. TECHNIQUE: Axial CT images of the left lower extremity (including left hip, left knee, and left ankle) was performed without IV contrast material. Coronal and sagittal reformats were provided. The protocol utilizes one or more of the following dose reduction techniques: automated exposure control, adjustment of mA and/or kV according to patient size, and/or use of iterative reconstruction technique. RADIATION DOSAGE (If Supplied By Facility): CTDIvol = ( 18.76 ) mGy, DLP = ( 1155.43 ) mGycm COMPARISON: Left knee radiographs dated 08/31/2024. FINDINGS: Bones: There is mild degenerative arthrosis of the left hip joint with tiny marginal osteophyte formation. There is tricompartment degenerative arthrosis of the left knee joint, most severe in the medial femorotibial compartment, where there is severe joint space narrowing, marginal osteophyte formation, and subchondral sclerosis/cyst formation. There is a small plantar calcaneal spur. There is a 4 mm well corticated ossified structure adjacent to the inferior tip of the medial malleolus, probably the sequelae of an old avulsion injury. Osseous structures are otherwise normal without evidence of acute fracture or dislocation. No lytic or blastic osseous masses. Soft Tissues: There is a small left knee joint effusion. There are mild atherosclerotic calcifications. The deep soft tissue structures are unremarkable. The superficial soft tissues are unremarkable without evidence of edema, hematoma, or foreign body. CT/Extremity Lower without Contra IMPRESSION: Tricompartment degenerative arthrosis of the left knee joint, most severe in the medial femorotibial compartment. Small left knee joint effusion. Electronically Signed: Dank Valles MD at 9:54 EST ,
== END | disposition home or self-care (01) ==
LOC: CT 14:50
PROVIDERS: PCP Internal Medicine; Referring Provider Orthopaedic Surgery; Visit Provider Orthopaedic Surgery
DX: M17.12 Unilateral primary osteoarthritis, left knee (principal)
CPT/HCPCS: 73700

== ENCOUNTER 2024-10-23 13:33 | Observation (INO) | payer MEDICARE, SELFPAY ==
[2024-10-10 11:00] LABS: International Normalized Ratio 1.3; Partial Thromboplast Time 29.3 Seconds (24.1-36.2); Prothrombin Time (Protime)PT. 16.4 SECONDS (11.7-14.9)
[2024-10-10 11:02] LABS: Absolute Lymphocyte Count 2.03 X10^3/uL (0.83-4.51); Absolute Neutrophil Count 4.3 X10^3/uL (2.0-7.7); Basophil# 0.05 X10^3/uL; Basophil% 0.7 % (0-1); Eosinophil# 0.24 X10^3/uL; Eosinophils% 3.3 % (0-5); Hematocrit 47.6 % (37-47); Hemoglobin 15.3 g/dL (12.0-15.0); Lymphocyte # 2.03 X10^3/ul (0.83-4.51); Mean Corp Hgb Conc 32.1 g/dL (32-36); Mean Corpuscular Hgb 28.2 pg (27.0-32.0); Mean Corpuscular Volume 87.8 fL (81-99); Mean Platelet Vol. 9.7 fl (6.2-12.0); Monocyte# 0.58 X10^3/uL; NRBC Flagged by Analyzer 0 % (0-5); Neutrophil # 4.33 X10^3/uL (2.7-7.7); Neutrophil % 59.6 % (47-70); Platelet Count 254 K/mm3 (150-450); RBC Distribution Width CV 13.7 % (11.6-14.6); RBC Distribution Width SD 43.8 fl (35.1-43.9); Red Blood Count 5.42 M/mm3 (4.2-5.4); White Blood Count 7.3 K/mm3 (4.4-11.0)
[2024-10-10 11:03] LABS: Hemoglobin A1c 5.7 % (3.8-5.6)
[2024-10-10 11:50] LABS: Magnesium 2.5 mg/dL (1.6-2.6)
[2024-10-10 11:51] LABS: Anion Gap 5 (5-15); BUN 16 mg/dL (7-18); Chloride 108 mmol/L (98-107); EST Glomerular Filtration Rate 72 mL/min (>60); Est Glom Filt Rate - Afr Amer 88 mL/min (>60); Glucose 106 mg/dL (74-106); Sodium Level 140 mmol/L (136-145)
[2024-10-11 04:08] LABS: Fructosamine 212 umol/L (0-285)
[2024-10-23] VITALS (13 sets, daily range): BP systolic 123–156; BP diastolic 53–72; PULSE 59–84; RESP 13–18; TEMP 36.2–36.8; O2SAT 97–100; BMI 31.1
[2024-10-23] MEDS: Magnesium 1 GM over 15 mins IV (09:50)
--- NOTE | 2024-10-23 10:16 | PCM.PRE.AN2 ---
ASA Classification* ASA Classification ASA Classification: 3 Assessment & Plan Anesthesia* Anesthesia Assessment Anesthesia Assessment: Discussed sedation and/or anesthesia options, risks, benefits, and alternatives with patient/parents/legal guardian/POA. Questions invited. The patient/parents/legal guardian/POA seems to understand and agrees to proceed with anesthesia plan. Reviewed the physical assessment, medical history, allergy history and patient home medications list prior to surgery/procedure/anesthetic and documented any changes. Performed airway and anesthesia risk assessments. Anesthesia Type Anesthesia Type: Spinal (OFF Eliquis greater then 72 hours) and Block Anesthesia Focused Assessment* Temperature: 97.7 F Pulse Rate: 59 Blood Pressure: 136/67 Respiratory Rate: 18 Pulse Ox: 100 Airway Assessment Mouth opens: >3 cm Mallampati Score: II Focused Labs Anesthesia Preop lab: CBC WBC 7.3 K/mm3 (4.4-11.0) 10/10/24 10:16 RBC 5.42 M/mm3 (4.2-5.4) H 10/10/24 10:16 Hgb 15.3 g/dL (12.0-15.0) H 10/10/24 10:16 Hct 47.6 % (37-47) H 10/10/24 10:16 Plt Count 254 K/mm3 (150-450) 10/10/24 10:16 CHEMISTRY Potassium 4.0 mmol/L (3.5-5.1) 10/10/24 10:16 Sodium 140 mmol/L (136-145) 10/10/24 10:16 Magnesium 2.5 mg/dL (1.6-2.6) 10/10/24 10:15 BUN 16 mg/dL (7-18) 10/10/24 10:16 Creatinine 0.80 mg/dL (0.55-1.02) 10/10/24 10:16 Glucose 106 mg/dL (74-106) 10/10/24 10:16 TSH 0.66 uIU/mL (0.358-3.74) 03/20/24 09:08 COAG PT 16.4 SECONDS (11.7-14.9) H 10/10/24 10:16 Pre-Assessment Diagnosis/Proposed Procedure Planned Operative Procedure(s): (L) Left Total Knee Replacement Robotic Arm Assisted Anesthesia History 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 When Was Last Pacemaker Check QUESTION #4 FULL TEXT: You/Your Family Experience fever (hyperthermia) with Anesthesia Last Oral Intake Last Oral intake: Last Oral Intake NPO since 07:00 10/23/24 10:08 Meds taken in AM with sips of Yes 10/23/24 10:08 water? Meds patient instructed to amiodarone, metoprolol 10/23/24 10:08 take am of surgery PONV PONV - watch technician: PONV - watch technician Female Yes 10/09/24 09:18 HX of Motion Sickness No 10/09/24 09:18 HX of N/V After Surgery No 10/09/24 09:18 Non-Smoker Yes 10/09/24 09:18 Duration of Surgery greater Yes 10/09/24 09:18 than 60 minutes Number of Risk Factors 3 10/09/24 09:18 PONV Score Moderate Risk 10/09/24 09:18 Height & Weight Height & Weight: Anesthesia: Height & Weight Height 5 ft 7 in 10/23/24 10:08 Weight: 90 kg 10/23/24 10:08 Body Mass Index (BMI) 31.1 10/23/24 10:08 Respiratory Assessment Respiratory Assessment - watch technician: Respiratory Tract Infection Hx - watch technician Hx Respiratory Tract Infection No 10/09/24 09:18 STOP Sleep Apnea STOP Sleep Apnea - watch technician: STOP Sleep Apnea - watch technician Hx Hypertension Yes: CONTROLLED WITH MED 10/09/24 09:18 Hx Sleep Apnea No 10/09/24 09:18 CPAP No 04/05/24 09:40 BIPAP Do you snore loudly (louder No 10/09/24 09:18 than talking or can be heard Do you often feel tired/ No 10/09/24 09:18 fatigued/ sleepy during daytime? Has anyone observed you stop No 10/09/24 09:18 breathing during sleep? STOP Results Negative 10/09/24 09:18 QUESTION #5 FULL TEXT : Do you snore loudly (louder than talking or can be heard through closed doors)? 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 Specify any problems Hx of Preganancy in last 3 N/A 10/09/24 09:18 Months Nurse Filling Out Transfusion NBUCHER 10/09/24 09:18 & Questions: Date: 10/09/24 10/09/24 09:18 Time: 09:19 10/09/24 09:18 Patient unable to answer at this time (ie. confused, unrespo /Reproduction History /Reproductive History - watch technician: /Reproductive Hx- watch technician Hx Now No 10/09/24 09:18 Gestational Age (in weeks): EDC: Hx Hx Para Hx Section SAB No 10/09/24 09:18 Active Medications Active Medications: Current Medications Generic Name Dose Route Start Last Admin Trade Name Freq PRN Reason Stop Dose Admin Acetaminophen 1,000 mg 10/23/24 11:25 Acetaminophen 500 Mg Tablet PO 10/23/24 11:26 X1 ONE Celecoxib 400 mg 10/23/24 11:25 Celecoxib 200 Mg Capsule PO 10/23/24 11:26 X1 ONE Dexamethasone Sodium Phosphate 10 mg 10/23/24 11:25 Dexamethasone 10 Mg/Ml Vial IV 10/23/24 11:26 X1 ONE Gabapentin 600 mg 10/23/24 11:25 Gabapentin 600 Mg Tablet PO 10/23/24 11:26 X1 ONE Cefazolin Sodium 2 gm/ Sodium 110 mls @ 150 mls/hr 10/23/24 11:25 Chloride IV 10/23/24 12:08 PREOP ONE Tranexamic Acid 1,000 mg/ 110 mls @ 660 mls/hr 10/23/24 11:25 Sodium Chloride IV 10/23/24 11:34 X1 ONE Tranexamic Acid 1,000 mg/ 110 mls @ 660 mls/hr 10/23/24 11:25 Sodium Chloride IV 10/23/24 11:34 X1 ONE Lactated Ringer's 1,000 mls @ 125 mls/hr 10/23/24 11:25 IV 10/23/24 19:24 .Q8H SHAUNA Magnesium Sulfate 1 gm/ 102 mls @ 408 mls/hr 10/23/24 11:25 Dextrose IV 10/23/24 11:39 X1 ONE Sodium Chloride 1,000 mls @ 15 mls/hr 10/23/24 09:30 IV 10/28/24 22:49 .Q48H SHAUNA Protocol Insulin Human Lispro 1 - 6 unit 10/23/24 11:25 Insulin Lispro 100 Unit/Ml Insuln.Pen SC Q4H PRN PRN BG>/= 180, SEE PROTOCOL Protocol Scopolamine HBr 1 patch 10/23/24 11:25 Scopolamine 1mg/72hr Patch TD 10/23/24 11:26 X1 ONE PFSH Medical History Preop exam for internal medicine Wears glasses Depression Osteoarthritis History of IBS Non-smoker History of Holter monitoring History of stress test History of echocardiogram Cardiology follow-up encounter Chest pain History of atrial fibrillation Benign positional vertigo Wide-complex tachycardia Ventricular ectopy Skin cancer Osteopenia Migraines Gallstones Cataract UTI (urinary tract infection) Mixed hyperlipidemia Prolapsed uterus IBS (irritable bowel syndrome) Nonrheumatic tricuspid valve regurgitation Non-rheumatic mitral regurgitation Valvular heart disease Secondary pulmonary hypertension Ectopic atrial tachycardia Premature ventricular contraction Premature atrial contractions Home Medications ?Medication ?Instructions ?Recorded ?Last Taken ?Type estradiol 0.01% (0.1 mg/gram) 1 g vaginal 2XW 09/26/19 10/21/24 History vaginal cream multivitamin 1 tab PO DAILY 09/26/19 10/22/24 History cholecalciferol (vitamin D3) 50 50 mcg PO DAILY 09/29/20 10/22/24 History mcg (2,000 unit) capsule lactobacillus combination no.9 4 4,000 mmu cells PO TID 09/29/20 10/22/24 History billion cell capsule (Adult 50 Plus Probiotic) metoprolol tartrate 50 mg tablet 50 mg PO BID #180 tabs 03/21/24 10/23/24 07:00 Rx apixaban 5 mg tablet (Eliquis) 5 mg PO BID #60 tabs 03/23/24 10/19/24 Rx amlodipine 5 mg tablet 5 mg PO DAILY #90 tabs 05/07/24 10/22/24 Rx amiodarone 200 mg tablet 100 mg (1/2 x 200 mg) PO DAILY #45 09/19/24 10/23/24 07:00 Rx tabs Allergy/AdvReac Type Severity Reaction Status Date / Time crab Allergy Intermediate Diarrhea Verified 10/23/24 10:05 tuna oil Allergy Mild Vomiting Verified 10/23/24 10:04 adhesive tape Allergy Hives Verified 10/23/24 10:04 codeine Allergy Chest Verified 10/23/24 10:04 tightness rosuvastatin (From Crestor) AdvReac Severe myalgias Verified 10/23/24 10:04 Sulfa (Sulfonamide AdvReac Mild Other Verified 10/23/24 10:04 Antibiotics) Iodine and Iodide Containing AdvReac Unknown Unknown Verified 10/23/24 10:04 Produc azithromycin AdvReac Abd Verified 10/23/24 10:04 cramps/diarrhea shrimp AdvReac Vomiting Verified 10/23/24 10:04 Family History Father COPD (chronic obstructive pulmonary disease) Mother CVA (cerebral vascular accident) Brother Myocardial infarction, Onset Age: 42 Brother Sudden cardiac Myocardial infarction, Onset Age: 64 Brother Myocardial infarction, Onset Age: 55 Sister TIA (transient ischemic attack) Heart valve disease Surgical History History of uterine suspension procedure History of oophorectomy, unilateral History of unilateral salpingectomy Hx of cataract surgery History of cholecystectomy Social History adopted: No household members: spouse housing: house current occupational status: retired Smoking Status: Never smoker alcohol intake: never substance use type: does not use what type of physical activity do you participate in: walking robert/voodoo: [employer] seatbelt use: always do you feel safe at home: Yes Review of Systems (Anesthesia) ROS Narrative System reviewed and no additional complaints, except as documented.
[2024-10-23] MEDS: 0.9% Normal Saline (1000mL) 1,000 ML 15 ML IV (10:17)
[2024-10-23] MEDS: Acetaminophen 500 MG Tablet 1000 MG PO ×3 (10:18→22:26)
[2024-10-23] MEDS: Scopolamine 1mg/72hr Patch 1 PATCH TD (10:18)
[2024-10-23] MEDS: Celecoxib 200 MG Capsule 400 MG PO (10:18)
[2024-10-23] MEDS: Gabapentin 600 MG Tablet PO (10:18)
--- NOTE | 2024-10-23 10:34 | HP.PCM_ITS ---
History and Physical Date of Admission: 10/23/24 [facility] [address] [place] [address] OFFICE VISIT Date of Service: 08/31/24 MR#: [id number] Acct: [id number] Name: ANITA RICE Rep #: [id number] : 1940 Provider: Dr. Krishna Greenfiled DO Age/Sex: 84/F Location: [facility] [place].NIA Status: Signed Intake Vital Signs 08/20/2410:57 Height 5 ft 7 in Weight: 201 lb 6 oz BMI 31.5 BP 111/75 Blood Pressure Location Rt brachial Position Sitting Respiration 16 Pulse 56 L Pulse Source Monitor Temp 98.2 F Temp Source Temporal Pulse Oximetry (%) 95 Oxygen Delivery Method room air Intake Visit Reasons: LEFT KNEE Accompanied by: Other Family Is patient in pain?: Yes Pain scale (1-10): 6 Allergies tuna oil Allergy (Mild, Verified 08/31/24 08:44) Vomitingadhesive tape Allergy (Verified 08/31/24 08:44) Hivescodeine Allergy (Verified 08/31/24 08:44) Chest tightnessrosuvastatin (From Crestor) Adverse Reaction (Severe, Verified 08/31/24 08:44) myalgiasSulfa (Sulfonamide Antibiotics) Adverse Reaction (Mild, Verified 08/31/24 08:44) Otheracetaminophen (From Tylenol) Adverse Reaction (Unknown, Verified 08/31/24 08:44) HivesIodine and Iodide Containing Produc Adverse Reaction (Unknown, Verified 08/31/24 08:44) Unknownazithromycin Adverse Reaction (Verified 08/31/24 08:44) Abd cramps/diarrheashrimp Adverse Reaction (Verified 08/31/24 08:44) Vomiting Medications ?Medication ?Instructions ?Recorded ?Confirmed ?Type estradiol 0.01% (0.1 mg/gram) 1 g vaginal 2XW 09/26/19 08/31/24 History vaginal cream multivitamin 1 tab PO DAILY 09/26/19 08/31/24 History cholecalciferol (vitamin D3) 50 50 mcg PO DAILY 09/29/20 08/31/24 History mcg (2,000 unit) capsule lactobacillus combination no.9 4 4,000 mmu cells PO DAILY 09/29/20 08/31/24 History billion cell capsule (Adult 50 Plus Probiotic) amiodarone 200 mg tablet 100 mg (1/2 x 200 mg) PO DAILY #30 08/12/23 08/31/24 Rx tabs metoprolol tartrate 50 mg tablet 50 mg PO BID #180 tabs 03/21/24 08/31/24 Rx apixaban 5 mg tablet (Eliquis) 5 mg PO BID #60 tabs 03/23/24 08/31/24 Rx escitalopram oxalate 5 mg tablet 5 mg PO DAILY #90 tabs 05/02/24 08/31/24 Rx (Lexapro) amlodipine 5 mg tablet 5 mg PO DAILY #90 tabs 05/07/24 08/31/24 Rx Have you fallen in the past year?: Yes [facility] Medical History (Updated 08/31/24 @ 09:[address] Krishna Greenfield, DO) Benign positional vertigo Wide-complex tachycardia Ventricular ectopy Skin cancer Osteopenia Migraines Gallstones Cataract UTI (urinary tract infection) Mixed hyperlipidemia Prolapsed uterus IBS (irritable bowel syndrome) Nonrheumatic tricuspid valve regurgitation Non-rheumatic mitral regurgitation Valvular heart disease Secondary pulmonary hypertension Ectopic atrial tachycardia Premature ventricular contraction Premature atrial contractions Surgical History History of oophorectomy, unilateral History of unilateral salpingectomy Hx of cataract surgery History of cholecystectomy Family History Father COPD (chronic obstructive pulmonary disease)Mother CVA (cerebral vascular accident)Brother Myocardial infarction, Onset Age: 42Brother Sudden cardiac Myocardial infarction, Onset Age: 64Brother Myocardial infarction, Onset Age: 55Sister TIA (transient ischemic attack) Heart valve disease Social History adopted: No household members: spouse housing: house current occupational status: retired Smoking Status: Never smoker alcohol intake: never substance use type: does not use what type of physical activity do you participate in: walking robert/quaker: Yarsani seatbelt use: always do you feel safe at home: Yes HPI LEFT KNEE Details: This documentation accurately reflects the service provided and the decisions made by , Dr. Krishna Greenfield, DO 08/31/24 0806. Part of today?s visit was documented by Zuleyka HERRERA, acting as scribe. ANITA RICE is a 84 year old F here today for Left knee. 08/31/2024: Patient states the gel injection helped for a day. Patient states she feels like her left knee wants to go out on her every once in a while. Very difficult going from a seated to a standing position or for standing for long periods of time. Patient would like to discuss a total knee replacement. She is seen with her daughter and today. The knee is preventing her from doing anything for any extended period of time as she will have to sit she was also worried about falling. Patient also brought up that her right knee is starting to bother her at the same place the other one did, right on the top and the side. 05/18/2024: patient completes Euflexxa series 12/28/2023 visit: 83 year old F here for left knee pain. Pain is mostly medial and peripatellar anterior. No history of injury. She cannot take NSAIDs secondary to Eliquis. She cannot take Tylenol because of itching. Pain started last summer. Very difficult going from a seated to a standing position or for standing for long periods of time. Has noticed swelling. Has Rollins's cyst. No prior surgeries physical therapy or injections. I did review her x-rays which demonstrate significant arthritis. Discussed options. Patient received steroid injection. Ortho Exam General General: Yes no acute distress, No distressed and Yes well groomed Neurologic: Yes alert and Yes oriented x3 Psychologic: Yes reasonable and appropriate Right Knee Patella Translation: 1 Left Knee Skin/Wound: No ecchymosis, No erythema and Yes swelling Homans Sign: No Knee ROM: Yes ROM-Extension -20 to 0 (-6) and Yes ROM-Flexion 0-140 (120) Examination: Yes med jt line tenderness and Yes Lat jt line tenderness Stability: NML: Anterior Drawer, NML: Posterior Drawer, NML: Valgus 0, NML: Valgus 30, NML: Varus 0 and NML: Varus 30 Apprehension with Lateral Translation: No Patella Translation: 1 Patella Grind: Yes KNEE: Mild edema in both legs but more on left Head: Normocephalic Atraumatic Chest: symmetrical rise, non-labored breathing, no audible wheeze Abdomen: no guarding, non-rigid medial femoral condyle tenderness Rollins's cyst w/ no tenderness Supplemental Info 08/31/2024 x-ray left knee:Advanced medial compartment arthritis near [id number] medial compartment, there is mild spurring noted in the lateral and patellofemoral compartment 12/28/2023 x-ray left knee: Advanced medial compartment arthritis near [id number] medial compartment, there is mild spurring noted in the lateral and patellofemoral compartment Coding Level of Care Code Off vis,est,level 4 Diagnoses Primary osteoarthritis of left knee M17.12 Osteoarthritis type: primary Sinus bradycardia R00.1 Atrial fibrillation I48.91 Ventricular ectopy I49.3 Nonrheumatic tricuspid valve regurgitation I36.1 Valvular heart disease I38 Secondary pulmonary hypertension Hx of intermediate use of blood thinners Z92.29 Assessment and Plan Assessment and Plan (1) Osteoarthritis of left knee: Status: Acute Qualifiers: Osteoarthritis type: primary Qualified Code(s): M17.12 - Unilateral primary osteoarthritis, left knee (2) Sinus bradycardia: Status: Acute (3) Atrial fibrillation: Status: Acute (4) Ventricular ectopy: Status: Acute (5) Nonrheumatic tricuspid valve regurgitation: Status: Acute (6) Valvular heart disease: Status: Chronic (7) Secondary pulmonary hypertension: Status: Acute (8) Hx of intermediate use of blood thinners: Status: Acute Orders: Orders Knee 4 or More Views Today M17.12 - Unilateral primary osteoarthritis, left knee Plan Patient is here today for continued left knee pain. She is here today to discuss a knee replacement. Spoke with patient that if she were to have a knee re placement she may not feel comfortable ever kneeling on her knee. I advise that it does take 2 years to fully recover from a knee replacement. It is affecting her quality life such as she is unable to stand too long for before she has to sit down. The patient and her daughter not feel will be safe for her to go home after the surgery as she could not navigate the stairs to get into the house and could not navigate around the house with a walker as there is some tight quarters. And her is not physically able to help her at all.. They would like to have transitional care unit or rehab stay prior to returning home. In addition to needing this additional stay she is 84 years old and does have medical comorbidities particularly concerning for cardiac comorbidities and she would benefit from an admission. In addition she does have some memory decline and cognitive decline that may lead to postoperative delirium. I did give her the option of doing the IOVERA treatment to help with the post operative pain and she would like this. We will need medical and cardiac clearance in addition clearance to stop her Eliquis for 3 days prior. She does have some memory issues that is of concern as well for after surgery. Risks, benefits and alternatives of surgery reviewed including but not limited to bleeding, infection, nerve, artery and/or tissue damage, fracture, VTE, mechanical feel of the knee, continued pain, stiffness and expected post- operative course. She would like to do the IOVERA procedure post operatively. Tentative surgery date admission 10/23/2024. Clinical Quality Measures Falls Risk Screening/Assistive Devices Have you fallen in the past year?: Yes 08/31/24 0957 <Electronically signed by Krishna Greenfield DO> Date Krishna William Signature: Date (if applicable) CC: ~
--- NOTE | 2024-10-23 11:15 | KNEE_PTH ---
PATIENT: ANITA RICE LOC: MS3 U#:[id number] AGE/SX: 84/F ROOM: [facility] RE10/23/[address]: Dr. Krishna Greenfield DO : 1940 BED: 1 DIS: 10/26/2024 SPEC #: [id number] RECD: 10/23/24 15:49 STATUS: SYL CROWE #: [id number] MAVIS: 10/23/24 11:[address]: Krishna Greenfield DEPT: SURGICAL PATHOLOGY RECD BY: Garrick Olivera ENTERED: 10/24/24 07:03 SP TYPE: TOTAL KNEE OTHR DR: Dr. Modesta Nicole MD Tissues: Knee, NOS Procedures: Decalcification bone/plaque Surgery Specimen Level IV HEADER OPERATION: Left total knee replacement robotic arm assist PRE-OP DIAGNOSIS: Primary osteoarthritis of left knee TISSUE SUBMITTED: Left knee bone and tissue MICROSCOPIC DIAGNOSIS Bone and soft tissue, left knee, total knee replacement/resection: Pieces of bone with degenerative osteoarthritic changes. : 10/29/2024 MICROSCOPIC DESCRIPTION Slides are reviewed. GROSS DESCRIPTION Received is one container designated bone and soft tissue left knee. The specimen consists of multiple fragments of briscoe-yellow bone measuring in aggregate 10.5 x 10.0 x 3.0 cm. No soft tissue is identified. A number of bony fragments contain articular surfaces consistent with tibial plateau and femoral condyle and displaying prominent osteophyte formation, eburnation and bone erosion. Junior Recruiter sections are submitted in one cassette after decalcification. / MARY. 10/24/2024 TC:5 CPT: 99725, 37898
[2024-10-23] MEDS: Cefazolin 2 GM in 0.9% Normal Saline (100mL Bag) 100 ML IV (11:31)
[2024-10-23] MEDS: TXA 1000mg in NS100 100ml (IVPB at Incision) 660 MG IV (11:40)
[2024-10-23] MEDS: dexAMETHasone 10 MG/ML Vial IV (11:40)
[2024-10-23] MEDS: TXA 1000mg in NS100 100ml (IVPB at Closure) 660 MG IV (12:06)
[2024-10-23] MEDS: dexAMETHasone 4 MG/ML Vial (12:56)
[2024-10-23] MEDS: Bupivacaine 0.5% PF 10 ML VIAL (12:56)
[2024-10-23] MEDS: Epinephrine (1 mg/ml) 1 MG/ML VIAL (12:56)
[2024-10-23] MEDS: 0.9% Normal Saline (Pres. free 10 ML Vial (12:56)
--- NOTE | 2024-10-23 13:37 | PCM.OPRPT ---
Operative Report (Standard) Operative Information Date of Procedure: 10/23/24 Pre-Operative Diagnosis: Left knee DJD Post-Operative Diagnosis: Same Surgery/Procedure Performed: Left total knee arthroplasty manager erp: Yes Lockstitch Tunnel Elastic Operator: Adams Hazel Tasks completed by marketing operations assistant: Opening & closing Type of Anesthesia: Spinal RN Documented Start/Stop Times: Operation Date: 10/23/24 11:15 Case Time Into Pre-Op 10/23/24 09:25 Anesthesia Start 10/23/24 11:26 Into Room 10/23/24 11:26 Procedure Start 10/23/24 11:54 Procedure End 10/23/24 13:34 Procedure Start Time: 11:54 Procedure Stop Time: 13:34 Select all DRAINS/GRAFTS/IMPLANTS that apply: Prosthetic device Prosthetic device details: Reece Estimated Blood Loss: 150 Specimen collected: Yes Description of specimen(s) removed: Bone Description of surgery: Preoperative diagnosis: Left knee DJD Postoperative diagnosis: Same Procedure: Left total knee arthroplasty CT guided Robotic Assisted Implant: Reece triathlon press fit, femoral component size 4, tibial baseplate size 5, asymmetric patella size 35, polyethylene X3 size 9 CS Anesthesia: Spinal with adductor canal block Tourniquet time: 12 minutes at 300 mmHg Complications: None Condition: Stable to PACU Estimated blood loss: 150 cc Supervisor Screen Making Adams Hazel. My physician molding line assistant was a vital part of this case. He was important in appropriate retraction during the case, and protection of soft tissues during procedure. His intimate knowledge of the case and my steps aided in safe and expedient completion of the procedure as well as appropriate position of the extremity during the case. He was also vital in assisting with closure under my direct supervision. Indication for procedure: This is a 84-year-old female with long standing degenerative joint disease of the knee who has failed conservative treatment and wished to proceed with elective total knee arthroplasty. Risk benefits and alternatives were reviewed including; risk of bleeding, infection, nerve artery and tissue damage, continued pain, postoperative stiffness, venous thromboembolism, need for postoperative rehabilitation, mechanical feel to the knee, and expected postoperative course. The pre- operative CT and templating was performed with component sizing. Procedure: The patient was met in the preoperative holding area. The operative extremity was identified by both patient and physician and was marked. Patient was met by anesthesia. An adductor canal block was placed by anesthesia postoperatively the patient was brought back to the operating room on a wheeled cart and transferred to the operating table in the supine position. Anesthesia was started. A well-padded tourniquet was placed on the operative extremity. The patient was prepped and draped in the usual sterile fashion. A timeout was called to ensure the proper patient procedure and extremity were being contemplated. An esmarch was used to exsanguinate the extremity. The tourniquet was inflated. A 10 blade scalpel was used to make a midline incision down through the skin and subcutaneous tissue. Skin retractors placed. Bovie and Aquamantis were used to perform meticulous hemostasis. full-thickness flaps were elevated medial and lateral along the joint capsule. A deep blade scalpel was used to perform a medial parapatellar arthrotomy. The knee was brought to full extension. A bovie was used to release the soft tissues off the most proximal aspect of the medial tibial plateau, a three-quarter inch curved osteotome was also used in this process. The infrapatellar fat pad was excised. The suprapatellar fat pad was excised partially anteriorolateraly and portion the anterioromedial pad was elevated from the femur. At this point our intra-articular femoral array was placed at a 45 degree angle proximal and posterior to the medial epicondyle. femoral checkpoint was placed at this time. Our tibial array was placed partially intra incisional 1 stab incision was made for the inferior pin with a 15 blade scaple, and pins were placed and attached to the tibial array , tibial checkpoint was placed in the proximal tibial metaphysis. Tourniquet was let down. At this point registration lindo were taken throughout the knee . Once the knee was registered we then tensioned the medial and lateral ligaments in extension and 90 degrees of flexion. We then used these numbers to adjust our components within parameters to balance the knee in both flexion and extension once this was done on our monitor we then proceeded with using the robotic arm to make our tibial plateau cut, anterior and posterior chamfer and distal femur cuts. we removed the cut fragments with the use of a bovie and Robin, we did use a lamina occupational medicine physician to insure we visualized and removed all posterior osteophytes and at this time also used the Aquamantis on the posterior joint capsule. we then trialed and achieved the desired plan with a well-balanced knee. we used the green probe to sohail the corresponding tibial rotation based on our CT template. Lug holes were drilled in the femur the tibia preparation was completed with the appropriate sized base plate pinned based on previous rotation sohail. An appropriate sized fin punch was used on the tibia and 4 corner drill was used for the press fit component and the patella was prepared by first using a caliper to ensure sufficient bone stock and a patellar reamer to remove the desired amount of bone. lug holes drilled for an asymmetric poly. We then brought the knee through range of motion with excellent patellar tracking. We thoroughly irrigated the knee. Trial components were removed a posterior capsular injection was preformed with our standard cocktail. In addition the aqua Mantis was also used to aid in hemostasis. Betadine rinse was allowed to sit and washed out completely. Components were press-fit into place. Aricept rinse was then used followed by several more liters of irrigation after it was allowed to sit. The joint capsule was closed with #1 Ethibond [id number]'s in the upper part of the arthrotomy and #1 Vicryl in the lower part of the arthrotomy. , Followed by 2-0 Vicryl in the subcutaneous tissues with raisa in the skin. Arrays and checkpoints were removed prior to closure all counts were correct stab incisions were closed with a staple standard dressing in the form of Mepilex AG for the main incision and a small Mepilex over the pin holes. Thigh-high CHIARA hose applied over top of dressing. Patient tolerated the procedure well and was directed to PACU in stable condition . There were no intraoperative complications. Surgical Findings: DJD knee Complications Complications: No
--- NOTE | 2024-10-23 13:55 | RAD_ITS ---
STUDY: X-RAY - LEFT KNEE REASON FOR EXAM: Female, 84 years old. Post op -- AP and Lateral xray of operative knee in PACU TECHNIQUE: 2 view(s) of the knee. COMPARISON: None. FINDINGS: Normal visualized distal femur. Normal visualized proximal tibia and fibula. Normal proximal tibiofibular articulation. The patient is status post total knee replacement. There is good alignment. Postoperative soft tissue changes. RAD/Knee 1 or 2 Views IMPRESSION: Status post total knee replacement. There is good alignment. Postoperative soft tissue changes. Electronically Signed: Sterling Garnica MD at 14:23 EST ,
--- NOTE | 2024-10-23 14:36 | PCM.POST.ANE ---
Anesthesia: Postop Eval I Current Vital Signs Temperature: 98.3 F Pulse Rate: 84 Blood Pressure: 133/67 Respiratory Rate: 16 Pulse Ox: 98 Oxygen Delivery Method: Room Air Assessment Airway patent: Yes Spontaneous unlabored respirations: Yes Mental status: Awake and Calm nausea: No Vomiting: No Anesthesia Complication: No Fluid Hydration Crystalloid volume administer (ml): 1,600 Total IV fluid infused: 1,600 Progress Note Anesthesia document: Postop Eval 1 completed: Yes
--- NOTE | 2024-10-23 16:44 | POSTOPAN2_ITS ---
Anesthesia Postop Eval I Sum Postop Eval Completion status Anesthesia document: Postop Eval 1 completed: Yes Anesthesia Postop Eval I Summary Anesthesia Postop Eval I Summary: Anesthesia Postop Eval I: Assessment Summary Airway patent Yes 10/23/24 14:39 [email or web address] [email or web address] Spontaneous unlabored Yes 10/23/24 14:39 SAGGER [email or web address] respirations Mental status Awake,Calm 10/23/24 14:39 [email or web address] [email or web address] nausea No 10/23/24 14:39 SAGGER [email or web address] Vomiting No 10/23/24 14:39 [email or web address] [email or web address] Anesthesia Postop Eval I: Fluid Summary Crystalloid volume administer 1,600 10/23/24 14:39 [email or web address] (ml) Colloids volume administered ( ml) Blood Product volume administered (ml) Total IV fluid infused 1,600 10/23/24 14:39 [email or web address] [email or web address] Anesthesia Postop Eval I: Summary Notes Anesthesia Complication No 10/23/24 14:39 [email or web address] [email or web address] Anesthesia Complication Comment: Post-operative progress note Anesthesia: Postop Eval II Evaluation Mental status: Awake and Calm Pain Level: 1 nausea: No Vomiting: No Complications Anesthesia Complication: No
--- NOTE | 2024-10-23 16:44 | PCM.POSTANE2 ---
Anesthesia Postop Eval I Sum Postop Eval Completion status Anesthesia document: Postop Eval 1 completed: Yes Anesthesia Postop Eval I Summary Anesthesia Postop Eval I Summary: Anesthesia Postop Eval I: Assessment Summary Airway patent Yes 10/23/24 14:39 FLIPPING MACHINE [email or web address].[email or web address] Spontaneous unlabored Yes 10/23/24 14:39 FLIPPING MACHINE OPERATOR.[email or web address] respirations Mental status Awake,Calm 10/23/24 14:39 FLIPPING MACHINE OPERATOR.[email or web address] nausea No 10/23/24 14:39 FLIPPING MACHINE OPERATOR.[email or web address] Vomiting No 10/23/24 14:39 FLIPPING MACHINE OPERATOR.[email or web address] Anesthesia Postop Eval I: Fluid Summary Crystalloid volume administer 1,600 10/23/24 14:39 FLIPPING MACHINE [email or web address].[email or web address] (ml) Colloids volume administered ( ml) Blood Product volume administered (ml) Total IV fluid infused 1,600 10/23/24 14:39 FLIPPING MACHINE [email or web address].[email or web address] Anesthesia Postop Eval I: Summary Notes Anesthesia Complication No 10/23/24 14:39 FLIPPING MACHINE [email or web address].[email or web address] Anesthesia Complication Comment: Post-operative progress note Anesthesia: Postop Eval II Evaluation Mental status: Awake and Calm Pain Level: 1 nausea: No Vomiting: No Complications Anesthesia Complication: No
[2024-10-23] MEDS: Lactated Ringers 1,000 ML 125 ML IV (16:46)
[2024-10-23] MEDS: Cefazolin 2 GM in Syringe IV (17:40)
[2024-10-23] MEDS: 0.9% Saline Lock 10 ML Syringe IV (17:41)
[2024-10-23] MEDS: Metoprolol Tartrate 50 MG Tablet PO (19:47)
[2024-10-23] MEDS: Senna/Docusate Sodium 1 Tablet 2 TABLET PO (19:48)
[2024-10-23] MEDS: Ketorolac 15 MG/ML Vial IV (22:26)
[2024-10-24] VITALS (7 sets, daily range): BP systolic 128–133; BP diastolic 54–72; PULSE 61–72; RESP 16–18; TEMP 36.4–37; O2SAT 96–100
[2024-10-24] MEDS: Lactated Ringers 1,000 ML 125 ML IV (00:43)
[2024-10-24] MEDS: Cefazolin 2 GM in Syringe IV ×2 (00:46→08:54)
[2024-10-24] MEDS: APIXABAN 2.5 MG TABLET (WCH) PO ×2 (05:38→20:32)
[2024-10-24 05:40] LABS: Hematocrit 39.1 % (37-47); Hemoglobin 12.9 g/dL (12.0-15.0); Mean Corpuscular Hgb 28.5 pg (27.0-32.0); Mean Corpuscular Volume 86.5 fL (81-99); Mean Platelet Vol. 9.7 fl (6.2-12.0); Platelet Count 220 K/mm3 (150-450); RBC Distribution Width CV 13.3 % (11.6-14.6); RBC Distribution Width SD 41.9 fl (35.1-43.9); Red Blood Count 4.52 M/mm3 (4.2-5.4); White Blood Count 16.8 K/mm3 (4.4-11.0)
[2024-10-24 06:10] LABS: Anion Gap 5 (5-15); BUN 12 mg/dL (7-18); BUN/Creat Ratio 15.5 RATIO (10-20); Calcium,Total 8.7 mg/dL (8.5-10.1); Chloride 110 mmol/L (98-107); Creatinine, Serum 0.77 mg/dL (0.55-1.02); EST Glomerular Filtration Rate 76 mL/min (>60); Est Glom Filt Rate - Afr Amer 91 mL/min (>60); Estimated Creatinine Clearance 60.29 ml/min; Glucose 144 mg/dL (74-106); Potassium 4.4 mmol/L (3.5-5.1); Sodium Level 140 mmol/L (136-145)
[2024-10-24] MEDS: Metoprolol Tartrate 50 MG Tablet PO ×2 (08:52→20:31)
[2024-10-24] MEDS: Cholecalciferol (VIT D3) 25 MCG TABLET (1,000 UNITS) 50 MCG PO (08:53)
[2024-10-24] MEDS: amLODIPine 5 MG Tablet PO (08:53)
[2024-10-24] MEDS: Senna/Docusate Sodium 1 Tablet 2 TABLET PO (08:53)
[2024-10-24] MEDS: Amiodarone 200 MG Tablet 100 MG PO (08:53)
[2024-10-24] MEDS: Acetaminophen 500 MG Tablet 1000 MG PO ×2 (08:54→16:09)
[2024-10-24] MEDS: 0.9% Saline Lock 10 ML Syringe IV ×2 (08:54→14:35)
--- NOTE | 2024-10-24 11:30 | CASEMGMT ---
FELIX LEACH Assessment: Face to Face with pt for initial transition planning/care coordination assessment. FELIX LEACH introduced self and role at [facility], pt voices understanding and consents to assessment. Pt is A&O x4 and answers all questions appropriately at this time. Pt lying in bed in no distress with and dtr in law, Amaya Minaya at bedside. Prior to starting any questions, pt dtr in law states, she is going to have rehab here right? Pt agreeable to FELIX LEACH discussing her care with all present. Made pt and family aware that pt did well with therapy and steps today and outpt therapy was recommended. Pt dtr in law states that the surgeon has a bed for the patient and promised rehab. She states he does not want pt to go home with a walker. Discussed with pt that the insurance will approve or deny this request. Care providers, pharmacy, and demographics verified/updated. Admitting Dx: L TKR Strata Score: 1 PCP:Corey Specialists:william Greenfield; Briseida cardio Preferred Pharmacy: [facility] Insurance: [employer] [facility] Prescription Benefit: yes LNOK: Anders Minaya, ; María Roberts, dtr Living Arrangements: Pt lives with in a single story home with 5 steps to enter with a rail on both sides. Pt reports she is typically I in ADL/IADLs. Pt family gets her groceries. Transportation: Pt drives self and denies concerns with transportation. Pt will transport pt until she can drive again. DME:2 canes, stairlift to basement, FWW, rollator, lift chair, walk in shower, elevated toilet seat HHC/SNF: Denies hx of Pt states she does want [facility] [place]. Pt denies need for a list of other options. Pt states no further concerns/needs. CM to follow. Advised pt to ask CM if any further question/concerns/needs arise, voices understanding. Pt Goal: [facility] Plan: [facility] pending acceptance and insurance approval Updated SW of pt preference Adi [place] CM
--- NOTE | 2024-10-24 12:33 | PCM.PN.ORT ---
Subjective Subjective Seen and examined. Complain of pain but manageable. Seen with family at bedside. Denies nausea vomiting shortness of breath or chest pain fevers or chills. She is passing gas but no bowel movement yet. Family and patient are very concerned about her being discharged home due to her advanced age no help at home physically narrow entryway's that would prohibit her from using her walker into her bathroom and her cognitive low-level dementia. Objective Data Objective Data Vital Signs: Vital Signs Temp Pulse Resp BP Pulse Ox O2 Del Method O2 Flow Rate 97.7 F L 61 16 133/72 H 100 Room Air 2 10/24/24 08:49 10/24/24 08:52 10/24/24 08:49 10/24/24 08:49 10/24/24 08:49 10/24/24 08:49 10/23/24 15:26 Oxygen Flow Rate (L/min) 2 Oxygen Delivery Method Room Air Weight: 198 lb 6.656 oz Body Mass Index (BMI) 31.1 Intake & Output: Intake and Output for Last 24 Hours 10/22/24 10/23/24 10/24/24 23:59 23:59 23:59 Intake Total 852 / 1452 3396.00 / 3396.00 Balance 852 / 1452 3396.00 / 3396.00 Lab / Micro Data 10/24/24 05:06 10/24/24 05:06 Labs: Laboratory Results - last 24 hr 10/24/24 05:06: WBC 16.8 H, RBC 4.52, Hgb 12.9, Hct 39.1, MCV 86.5, MCH 28.5, MCHC 33.0, RDW Std Deviation 41.9, RDW Coeff of Lia 13.3, Plt Count 220, MPV 9.7, Sodium 140, Potassium 4.4, Chloride 110 H, Carbon Dioxide 26.0, Anion Gap 5, BUN 12, Creatinine 0.77, Estim Creat Clear Calc 60.29, Est GFR (MDRD) Af Amer 91, Est GFR (MDRD) Non-Af 76, BUN/Creatinine Ratio 15.5, Glucose 144 H, Calcium 8.7 Micro: Microbiology 10/10/24 10:16 Swab (Method) Nasal Screen MRSA/MSSA - Final Radiography Diagnostic Testing: Radiology Impression Knee X-Ray 10/23/24 13:55 IMPRESSION: Status post total knee replacement. There is good alignment. Postoperative soft tissue changes. Electronically Signed: Sterling Garnica MD at 14:23 EST , Physical Exam Const no apparent distress General Appearance: cooperative Extremity Extremity Narrative: Left knee dressing clean dry intact compartment soft neurovascular intact EHL tibialis anterior gastrocsoleus intact station light touch palpable pedal pulse Assessment & Plan Assessment/Plan (1) S/P total knee arthroplasty: QUALIFIERS: Laterality: left Qualified Code(s): Z96.652 - Presence of left artificial knee joint PLAN: Plan Postop day #1 left total knee arthroplasty PT OT weightbearing as tolerated Pain control oxycodone Tylenol May resume Eliquis preoperative dose 5 mg twice daily tomorrow DC planning TCU Patient is of advanced age has low-level dementia has steps to enter and within the home as well as narrowed walkways that would prohibit the use of a walker into her bathroom because of the house age. It is not safe for her to be discharged home and she does require additional care before returning home.
--- NOTE | 2024-10-24 12:37 | DCINST_ITS ---
Discharge Instructions Diet Discharge Diet: No restrictions Activity Weight Bearing Status: Full weight bearing Dressing / Incision Call your doctor if you observe: Shortness of breath and Chest pain Additional Dressing/Incision Instructions:: Ice and elevate lower extremities 2 weeks while not ambulating. Ambulation is encouraged. Weight bearing as tolerated. Use assistive devise for stability. Encourage FULL knee extension and flexion 1 time EVERY time you get up and down and MULTIPLE times per day. No showering until 72 hours after surgery. May begin showering postop day #3. Remove the dressing prior to shower and gently wash with warm water and antibacterial soap then pat dry and place abdominal pad (or plain gauze) and CHIARA hose over top. This is to be done daily. Do not submerge for 3 weeks. If not showering daily after the initial 72 hours then you must clean incision and change dressing daily after the dressing comes off, must come off by 7 days postop. Do not allow animals near the incision area. Keep clean. Follow anti- coagulation recommendations as prescribed. Do not take any NSAIDs while on blood thinner. Do not take any additional narcotic pain medication other than what was prescribed on your surgery day without discussing with physician. Narcotic medication can be addictive. Do not drink alcohol while taking narcotics. Supplement narcotic prescription with acetaminophen 1000 mg 4 times a day. Start physical therapy. If you are not currently scheduled for physical therapy or you are unsure of appointment time please call office [facility] to arrange. Call Dr. Greenfield with any concerns. Follow Up Care Please Follow Up With: Krishna Greenfield DO When: 2 weeks Test Results: Test results from this visit will be discussed in further detail at your follow- up appointment, if applicable. Discharge Plan Admission Admit Date/Time: 10/23/24 13:33 Primary Reason for Your Visit: Left total knee arthroplasty Attending Provider: Krishna Greenfield Primary Care Provider: Modesta Nicole Discharge Orders/Prescriptions Prescriptions: New acetaminophen 500 mg tablet 1,000 mg PO Q6H PRN (Reason: fever or pain) Qty: 90 0RF oxycodone 5 mg tablet 5 - 10 mg PO Q4H PRN (Reason: pain) 7 Days Qty: 60 0RF Continued estradiol 0.01 % (0.1 mg/gram) cream 1 g VAGINAL 2XW multivitamin Tablet 1 tab PO DAILY Adult 50 Plus Probiotic 4 billion cell capsule 4,000 mmu cells PO TID Rx Instructions: administer with a meal cholecalciferol (vitamin D3) 50 mcg (2,000 unit) capsule 50 mcg PO DAILY metoprolol tartrate 50 mg tablet 50 mg PO BID Qty: 180 3RF Eliquis 5 mg tablet 5 mg PO BID Qty: 60 11RF amlodipine 5 mg tablet 5 mg PO DAILY Qty: 90 3RF amiodarone 200 mg tablet 100 mg PO DAILY Qty: 45 3RF Disposition Discharge Orders: Discharge Patient (Routine); Ordered 10/26/24 Ordered By: Dr. Krishna Greenfield
[2024-10-24] MEDS: oxyCODONE 5 MG Tablet PO (14:35)
[2024-10-24] MEDS: Ketorolac 15 MG/ML Vial IV (14:36)
--- NOTE | 2024-10-24 15:12 | CASEMGMT ---
FELIX LEACH in to discuss BARTON form with patient. FELIX LEACH explained BARTON form, patient voiced understanding. Pt signed form and filed in chart. Pt provided with a copy of signed BARTON form. Patient had no further questions or concerns at this time. Pt states that her walker does not fit through her doors at home. Noted pt walker in room. Pt aware that this walker appears to be much larger than needed for her size. Pt states her dtr got it at [facility] for $3. Pt is aware that should she dc home, this FELIX LEACH can assist with getting a better fitting walker for her through her insurance if she would like. Pt agreeable to this.
--- NOTE | 2024-10-24 17:10 | CASEMGMT ---
Social Work- SW received noticed from physician that pt would like referral to TCU. Referral completed. Pt accepted and precert started. SW updated pt and daughters, María and Jennifer, and discussed possibility that pt may be declined and discussed what alternate options the pt and family may prefer at discharge. Jennifer reports that pt cannot return home d/t care needs. SW discussed alternate options if insurance declines SNF. Family will discuss what preferences may be if needed. SW will remain available to follow. Plan: TCU; precert pending WILLY Huerta
[2024-10-25] VITALS (7 sets, daily range): BP systolic 108–136; BP diastolic 48–67; PULSE 57–66; RESP 16; TEMP 36.4–36.6; O2SAT 95–97
[2024-10-25] MEDS: Acetaminophen 500 MG Tablet 1000 MG PO ×4 (00:57→23:00)
[2024-10-25 06:19] LABS: Hematocrit 35.5 % (37-47); Hemoglobin 11.4 g/dL (12.0-15.0); Mean Corp Hgb Conc 32.1 g/dL (32-36); Mean Corpuscular Hgb 28.3 pg (27.0-32.0); Mean Corpuscular Volume 88.1 fL (81-99); Mean Platelet Vol. 9.7 fl (6.2-12.0); Platelet Count 193 K/mm3 (150-450); RBC Distribution Width SD 45.2 fl (35.1-43.9); Red Blood Count 4.03 M/mm3 (4.2-5.4); White Blood Count 11.9 K/mm3 (4.4-11.0)
[2024-10-25] MEDS: Cholecalciferol (VIT D3) 25 MCG TABLET (1,000 UNITS) 50 MCG PO (09:20)
[2024-10-25] MEDS: Metoprolol Tartrate 50 MG Tablet PO ×2 (09:20→20:16)
[2024-10-25] MEDS: APIXABAN 2.5 MG TABLET (WCH) PO (09:20)
[2024-10-25] MEDS: Amiodarone 200 MG Tablet 100 MG PO (09:21)
[2024-10-25] MEDS: amLODIPine 5 MG Tablet PO (09:21)
[2024-10-25] MEDS: oxyCODONE 5 MG Tablet PO ×3 (09:25→20:15)
--- NOTE | 2024-10-25 16:53 | PCM.PN.ORT ---
Subjective Subjective Seen and examined doing okay has pain in the knee but tolerable did not do his well this morning required assistance to get out of bed cannot ambulate on her own. Objective Data Objective Data Vital Signs: Vital Signs Temp Pulse Resp BP Pulse Ox O2 Del Method O2 Flow Rate 98 F 57 L 16 108/48 L 97 Room Air 2 10/25/24 14:38 10/25/24 14:38 10/25/24 14:38 10/25/24 14:38 10/25/24 14:38 10/25/24 14:38 10/23/24 15:26 Oxygen Flow Rate (L/min) 2 Oxygen Delivery Method Room Air Weight: 198 lb 6.656 oz Body Mass Index (BMI) 31.1 Intake & Output: Intake and Output for Last 24 Hours 10/23/24 10/24/24 10/25/24 23:59 23:59 23:59 Intake Total 852 / 1452 3396.00 / 3396.00 650 / 650 Balance 852 / 1452 3396.00 / 3396.00 650 / 650 Lab / Micro Data 10/25/24 06:00 10/24/24 05:06 Labs: Laboratory Results - last 24 hr 10/25/24 06:00: WBC 11.9 H, RBC 4.03 L, Hgb 11.4 L, Hct 35.5 L, MCV 88.1, MCH 28.3, MCHC 32.1, RDW Std Deviation 45.2 H, RDW Coeff of Lia 14.0, Plt Count 193, MPV 9.7 Micro: Microbiology 10/10/24 10:16 Swab (Method) Nasal Screen MRSA/MSSA - Final Physical Exam Const alert, oriented x3 and no apparent distress General Appearance: cooperative Extremity Extremity Narrative: Left knee dressing clean dry intact compartment soft neurovascular intact EHL tibialis anterior gastrocsoleus intact station light touch palpable pedal pulse Assessment & Plan Assessment/Plan (1) S/P total knee arthroplasty: QUALIFIERS: Laterality: left Qualified Code(s): Z96.652 - Presence of left artificial knee joint PLAN: Plan Postop day #2 left total knee arthroplasty PT OT weightbearing as tolerated Pain control oxycodone Tylenol May resume Eliquis preoperative dose 5 mg twice daily tomorrow DC planning TCU Patient is of advanced age has low-level dementia has steps to enter and within the home as well as narrowed walkways that would prohibit the use of a walker into her bathroom because of the house age. It is not safe for her to be discharged home and she does require additional care before returning home.
[2024-10-25] MEDS: APIXABAN 5 MG TABLET PO (20:16)
[2024-10-26 05:12] VITALS: BP 142/69; PULSE 63; RESP 16; TEMP 36.6; O2SAT 95
[2024-10-26] MEDS: oxyCODONE 5 MG Tablet PO (06:24)
[2024-10-26 07:32] LABS: Hematocrit 37.5 % (37-47); Hemoglobin 12.1 g/dL (12.0-15.0); Mean Corp Hgb Conc 32.3 g/dL (32-36); Mean Corpuscular Hgb 28.5 pg (27.0-32.0); Mean Corpuscular Volume 88.2 fL (81-99); Mean Platelet Vol. 9.8 fl (6.2-12.0); Platelet Count 195 K/mm3 (150-450); RBC Distribution Width CV 14.1 % (11.6-14.6); RBC Distribution Width SD 45.1 fl (35.1-43.9); Red Blood Count 4.25 M/mm3 (4.2-5.4); White Blood Count 7.9 K/mm3 (4.4-11.0)
[2024-10-26 08:26] VITALS: BP 153/79; PULSE 67; RESP 14; TEMP 36.2; O2SAT 95
[2024-10-26] MEDS: Amiodarone 200 MG Tablet 100 MG PO (08:36)
[2024-10-26] MEDS: Acetaminophen 500 MG Tablet 1000 MG PO ×2 (08:36→14:15)
[2024-10-26 08:38] VITALS: PULSE 67
[2024-10-26] MEDS: Metoprolol Tartrate 50 MG Tablet PO (08:38)
[2024-10-26] MEDS: amLODIPine 5 MG Tablet PO (08:42)
[2024-10-26] MEDS: Cholecalciferol (VIT D3) 25 MCG TABLET (1,000 UNITS) 50 MCG PO (08:42)
[2024-10-26] MEDS: Senna/Docusate Sodium 1 Tablet 2 TABLET PO (08:42)
[2024-10-26] MEDS: APIXABAN 5 MG TABLET PO (08:47)
[2024-10-26] MEDS: Ondansetron 4 MG/2 ML Vial IV (08:47)
[2024-10-26] MEDS: 0.9% Saline Lock 10 ML Syringe IV (08:56)
--- NOTE | 2024-10-26 08:57 | CASEMGMT ---
Addendum entered by Shalini Loredo 10/26/24 09:47: Social Work- SW received phone call from Dr Greenfield who reports that the declination was upheld by insurance. feels pt is medically ready and will meet with pt around noon to discuss discharge plans. VIRGINIE called pt dtr Jennifer to discuss declination and plans for discharge. Jennifer is open to [facility]. Jennifer will call pt dtr María and provide updates to her as well. Family will be at the hospital by noon to meet with . A [facility] list will be provided. VIRGINIE updated RNCM. VIRGINIE updated pt. WILLY Huerta Original Note: Social Work- SW received a message from pt insurance that pt was declined and offering a [id number]. Pending auth # is [id number]. Contact number [phone]. This is a direct line, no scheduling needed. Physician will need name, , member ID. VIRGINIE called and spoke with Mirian @ physician office, as well as left a message. VIRGINIE remains available to follow. WILLY Huerta
--- NOTE | 2024-10-26 10:15 | CASEMGMT ---
Discharge Planning A list of?HH providers including quality and resource use data and consistent with the patient's preferred geographic region, medical needs, and insurance network was created in [facility] Guide.? This list was provided to the RN HANY. Awilda Chowdhury, Discharge Planning Asst.
--- NOTE | 2024-10-26 11:50 | CASEMGMT ---
Addendum entered by Renay Garcias 10/26/24 12:25: [facility]. Addendum entered by Renay Garcias 10/26/24 12:19: Spoke with and he states pt can go to outpt therapy. FELIX LEACH into pt room, pt chose [facility] for this. Made tc in room to work with dtr's schedule. Appt is on Tuesday at 2pm. Placed on dc instructions. Faxed order to [facility]. Dr. Greenfield stated pt rx are on the chart. FELIX LEACH gave pt dtr 2 rx written. Original Note: FELIX LEACH into pt room, pt , dtr María, and dtr in law present. Pt is already aware that the insurance denied SNF LOC. Provided pt with a list of [employer] created by dc assistant professor of biochemistry. Also discussed a new walker. Provided pt with a verbal local in network list of DME companies, pt chose [employer]. Family to discuss [employer] options. FELIX LEACH left room and dtr in law came down [place] with choices of 1. [facility] 2. [facility] and 3. [facility]. Referral requested by dc assistant professor of biochemistry to be sent to [facility] at this time.
--- NOTE | 2024-10-26 12:11 | PCM.PN.ORT ---
Subjective Subjective Seen and examined. Family in the room. Pain is controlled with medication. She did have vomiting last night and this morning however has had breakfast and lunch and has been able to keep what she has eaten down since then that she does not feel nauseous currently she denies any fevers or chills chest pain or shortness of breath Objective Data Objective Data Vital Signs: Vital Signs Temp Pulse Resp BP Pulse Ox O2 Del Method O2 Flow Rate 97.2 F L 67 14 153/79 H 95 Room Air 2 10/26/24 08:26 10/26/24 08:38 10/26/24 08:26 10/26/24 08:26 10/26/24 08:26 10/26/24 08:27 10/23/24 15:26 Oxygen Flow Rate (L/min) 2 Oxygen Delivery Method Room Air Weight: 198 lb 6.656 oz Body Mass Index (BMI) 31.1 Intake & Output: Intake and Output for Last 24 Hours 10/24/24 10/25/24 10/26/24 23:59 23:59 23:59 Intake Total 3396.00 / 3396.00 650 / 650 Balance 3396.00 / 3396.00 650 / 650 Lab / Micro Data 10/26/24 07:08 10/24/24 05:06 Labs: Laboratory Results - last 24 hr 10/26/24 07:08: WBC 7.9, RBC 4.25, Hgb 12.1, Hct 37.5, MCV 88.2, MCH 28.5, MCHC 32.3, RDW Std Deviation 45.1 H, RDW Coeff of Lia 14.1, Plt Count 195, MPV 9.8 Micro: Microbiology 10/10/24 10:16 Swab (Method) Nasal Screen MRSA/MSSA - Final Physical Exam Const alert and oriented x3 General Appearance: cooperative Extremity Extremity Narrative: Left knee dressing clean dry intact compartment soft neurovascular intact EHL tibialis anterior gastrocsoleus intact station light touch palpable pedal pulse Assessment & Plan Assessment/Plan (1) S/P total knee arthroplasty: QUALIFIERS: Laterality: left Qualified Code(s): Z96.652 - Presence of left artificial knee joint PLAN: Plan Postop day #3 left total knee arthroplasty PT OT weightbearing as tolerated Pain control oxycodone Tylenol 5 mg twice daily Patient has been denied for TCU I did try a peer to peer to explained why I felt this was appropriate it was denied. She will be discharged home she will start outpatient physical therapy she will be get set up for a smaller walker to help navigate her narrow or walkways in her home. She can begin showering today if she likes.
[2024-10-26 13:55] VITALS: BP 141/55; PULSE 72; RESP 16; TEMP 36.4; O2SAT 97
== END 2024-10-26 14:14 | disposition home or self-care (01) ==
LOC: SDC 14:32 → MS3 14:32
PROVIDERS: Anesthesiology; Admitting Provider Orthopaedic Surgery; PCP Internal Medicine; Referring Provider Orthopaedic Surgery; Visit Provider Orthopaedic Surgery
PROC: 0SRD0JZ Replacement of Left Knee Joint with Synthetic Substitute, Open Approach (ICD-10-PCS; CPT 27447; principal; 2024-10-23 10:45)
DX: M17.12 Unilateral primary osteoarthritis, left knee (principal); I27.29 Other secondary pulmonary hypertension; I48.91 Unspecified atrial fibrillation; E78.2 Mixed hyperlipidemia; M71.20 Synovial cyst of popliteal space [Baker], unspecified knee; R00.1 Bradycardia, unspecified; Z79.01 Long term (current) use of anticoagulants; Z79.899 Other long term (current) drug therapy
CPT/HCPCS: 27447; S2900; 01402; 64447; 36415; 73560; 80048; 82985; 83036; 83735; 85025; 85027; 85610; 85730; 86850; 86900; 86901; 87081; 88305; 88311; 94668; 96361; 96365; 96366; 96375; 96376; 97110; 97116; 97162; 97166; 97530; 97535; 99221; C1776; A4216; G0378; J2405; J3475

== ENCOUNTER 2024-12-18 10:30 | Outpatient (RCR) | payer MEDICARE, SELFPAY ==
--- NOTE | 2024-10-29 18:24 | HP.PTEVAL_ITS ---
Patient's Visit Information Visit Information Visit Information: ANITA RICE is a 84 year old F referred to Physical Therapy by Dr. Krishna Greenfield DO with a diagnosis of S/P L TKA. Date of Evaluation: 10/29/24 Physical Therapist: Michelle Catalan, PT, Cert MDT Visit Plan Frequency: 2-3x /Week Duration: 2-4 Months Plan: 1. Restore knee flexion and extension range of motion 2. Improve strength of quads, hamstrings and hips in both open and closed chain. 3. Progress gait with LRD as tolerated. Re-integrate functional mobility with stairs and transfers. May use VASO and ice as needed for edema. Subjective Subjective: THIS PATIENT PRESENTS TO PT S/P L TKA BY DR. GREENFIELD WITH C/O L KNEE PAIN AND SWELLING. D/C HOME FROM [facility] TUESDAY. Pain Scale: WORST 9/10, LEAST 3/10 Currently: 3/10 Commenced as a result of: OA Worse: GETTING UP OUT OF A CHAIR, SITTING ON TOLIET, STANDING, WALKING, GETTING COVERS OFF LEG IN BED, GETTING OUT OF BED, DOING EXERCISES Better: SITTING, PUTTING PILLOW UNDER LEGS, ICE MACHINE, PAIN MEDICINE - OXICODONE AND EXTRA STRENGTH TYLONOL Disturbed sleep: YES. HAVE TO SLEEP ON BACK BUT LIKES TO SLEEP ON R SIDE. Previous history/Previous treatment: NO PRIOR SURGERY OR FORMAL PT. H/O 3 SHOTS BEFORE SX WITH DX OF BAKERS CYST AND HOME EX'S. Gait: CURRENTLY USING A FWW. BEFORE SURGERY WAS USING A FWW SOME TOO. PMH/Recent major surgery: Dementia per daughter (Uzair Osullivan). Depression Osteoarthritis History of IBS Non-smoker atrial fibrillation Benign positional vertigo Wide-complex tachycardia Ventricular ectopy Skin cancer Osteopenia Migraines Gallstones Cataract H/O UTI (urinary tract infection) Mixed hyperlipidemia Prolapsed uterus IBS (irritable bowel syndrome) Nonrheumatic tricuspid valve regurgitation Non-rheumatic mitral regurgitation Valvular heart disease Secondary pulmonary hypertension Ectopic atrial tachycardia Premature ventricular contraction Premature atrial contractions History of uterine suspension procedure History of oophorectomy, unilateral History of unilateral salpingectomy Hx of cataract surgery History of cholecystectomy Objective Objective: THIS PATIENT AMBULATES INDEP'LY INTO PT TODAY WITH A FWW, DECREASED CADANCE, DECREASED WT BEARING TIME LLE AND NO LOB FROM LOBBY TO PT EVAL ROOM. PATIENT IS HEAVILY DEPENDENT ON MARTINA UE'S ON WALKER DURING GAIT WHEN INITIATING GAIT AFTER SITTING FOR ABOUT 10 FEET AND WITHOUT CUEING. SHE IS ALSO HEAVILY DEPENDENT ON MARTINA UE'S FOR TRANSFERS SIT TO STAND AND REVERSE. SHE IS ABLE TO TRANSFER SIT TO SUPINE INDEP BUT REQUIRED +1 ASSIST SUP[place] TO SIT. SHE IS ACCOMPANIED BY HER DAUGHTER UZAIR OSULLIVAN TODAY. WOMAC SCORE: 79 TU.65 SEC WITH FWW GIRTH MEASUREMENTS: PATELLA 43cm, 6 SUPRA PATELLA 50.5cm, 6 INFRA PATELLA 38cm. ROM: L KNEE AROM: 10-0-90, L KNEE PROM: 5-0-98 (PATIENT HAS BEEN USING HER R LE TO ASSIST LLE INTO FLEXION AND THIS IS HOW MEASUREMENT TAKEN TODAY. PASSIVE EXTENSION MEASURED WITH GRAVITY ASSIST IN SUPINE). STRENGTH: HIP FLEX L 6.7, R 11.6 LBS. HIP ABD L 9.9, R 20.1 LBS, KNEE EXT L 8.7, R 20.3 LBS, KNEE FLEX L 11.5, R 25.9 LBS (STRAIN GUARGE PEAK FORCE LBS). Balance/Special Test Scores WOMAC Total Score: 79 WOMAC Percentatge: 17.7100 Goals Goal 1:: PATIENT WILL COMPLETE TUG IN < 20 SECS WITH CANE TO DEMONSTRATE IMPROVED GAIT STABILITY Goal Time Frame: 4-6 Weeks Goal 2:: PATIENT WILL COMPLETE 6 STANDS IN 30 SECS WITH ONE BLUE FOAM ON CHAIR AND HANDS ON KNEES TO DEMONSTRATE IMPROVED FUNCTIONAL STRENGTH Goal Time Frame: 4-6 Weeks Goal 3:: PATIENT WILL HAVE DECREASED EDEMA IN LLE. Goal Time Frame: 4-6 Weeks Goal 4:: PATIENT WILL HAVE INCREASED R KNEE ROM TO AT LEAST 0-120 DEG FLEXION. Goal Time Frame: 6-8 Weeks Goal 5:: PATIENT WILL BE ABLE TO NEGOTIATE STEPS WITH 1 HR WITH RECIPROCAL PATTERN WITHOUT LIMITATIONS. Goal Time Frame: 6-8 Weeks Goal 6:: PATIENT WILL SCORE AT LEAST 15 POINTS BETTER ON WOMAC QUESTIONNAIRE Goal Time Frame: 6-8 Weeks Rehabilitation Potential Rehabilitation Potential: Excellent Anticipated Interventions Patient/Client Instruction: Educate patient on: Condition, Plan of Care and Risk Factors For the Purpose of:: To improve self management Therapeutic Exercise to Include: Strength training, Balance training, Flexibilty training, Gait and locomotor training, Neuromotor development and Active ROM For the Purpose of:: To decrease pain, To decrease swelling/inflammation, To increase ROM, To improve nutrient delivery to tissue, To improve muscle performance and motor function, To increase tolerance to activity/condition/position, To improve performance and independence with ADL's, To decrease level of supervision to perform tasks, To improve ability of physical actions for home/community/work/leisure, To improve gait and locomotor functions, To decrease soft tissue restriction, To increase flexibility/ROM, To improve safety with gait, To improve safety and To improve self management Manual Therapy Techniques to Include: Mobilization and Soft tissue mobilization For the Purpose of:: To decrease pain, To decrease swelling/inflammation, To increase ROM and To improve muscle performance and motor function Cryotherapy (ice pack, ice massage): Yes Vasopneumatic device: Yes For the Purpose of:: To decrease pain and To decrease swelling/inflammation Text: Thank you for the opportunity to evaluate your patient. For Medicare and Medicare HMO plans, please review the plan of care and approve it. It will need to be FAXED BACK to us at [phone] for Medicare purposes. For Medicare only, by signing this I certify the plan of care. Please let me know if there are questions or concerns regarding this plan of care. Physician Signature: Date:____
--- NOTE | 2024-11-28 14:40 | HP.PTREVAL ---
Re-Evaluation Intro: Dr. Krishna Greenfield, DO, It has been my pleasure to treat ANITA RICE over the last 12 visits for S/P L TKA. Please see the progress note below for an update on the physical therapy plan of care! Subjective Subjective: PATIENT AND HER DAUGHTER REPORTS PATIENT IS DOING BETTER. HAD COVID LAST WEEK THEREFORE NOT ABLE TO BE COMPLIANT WITH EXERCISING AND INCREASED NEED FOR WALKER. STATES HER R (NON-OPERATIVE) KNEE HAS BEEN ACTING LIKE IT IS GOING TO GIVE OUT. STEPS IN/OUT OF HOUSE ARE GOING GOOD BECAUSE CAN USE THE 2 HR'S AND DAUGHTER CARRIES WALKER UP AND DOWN BUT WANTS TO BE ABLE TO GO UP AND DOWN WITH CANE SO CAN GET OUT WITH ( CAN'T CARRY WALKER UP AND DOWN). L KNEE PAIN RANGING 0-5/10. Objective Objective/Function: PATIENT WAS SEEN TODAY FOR RE-ASSESSMENT OF PROGRESS TOWARD THE SET PT GOALS AND THE NEED FOR FURTHER PHYSICAL THERAPY VS READINESS FOR DISCHARGE. THIS PATIENT IS MAKING GOOD PROGRESS BUT PROGRESS HAS BEEN interrupted BY ILLNESS. SHE IS A GOOD CANDIDATE TO CONTINUE PT AND SHE AND HER DAUGHTER ARE IN AGREEMENT. THEY WOULD LIKE TO DECREASE TO 2X'S A WEEK AND THIS PT AGREES. UPON EXAM TODAY: THIS PATIENT AMBULATES INDEP'LY INTO PT TODAY WITH A FWW, DECREASED CADANCE AND NO LOB FROM LOBBY TO PT EVAL ROOM. CUEING NEEDED FOR PATIENT TO SLOW DOWN WITH WALKER TO BE SAFE. SHE STARTED WALKING TOO FAST AND NOT PICKING HER FEET UP COMPLETELY MAKING HER A FALL RISK. SHE WAS ALSO BECOMING SOB. ON THE WAY OUT SHE HAD AN EPISODE OF HER R KNEE GIVING OUT BUT SHE REGAINED HER BALANCE INDEP'LY WITH USE OF HER WALKER. THIS PT ENCOURAGED HER TO CONTINUE TO USE HER WALKER AT ALL TIMES AT THIS TIME DUE TO THIS. PATIENT AGREEABLE. DAUGHTER PRESENT THROUGHOUT SESSION. OVER-ALL PATIENT IS MUCH LESS DEPENDENT ON WALKER DURING GAIT NOW FOR BALANCE BUT IT IS STILL NEEDED FOR SAFETY. SHE IS STILL MARTINA UE DEPENDENT TO TRANSFER FROM SIT TO STAND AND REVERSE. TRANSFERS SIT TO SUPINE AND REVERSE ARE INDEP AND SHE CAN NOW GET HER LLE IN AND OUT OF THE BED WITHOUT UE ASSIST. WOMAC SCORE: NT TU.03 SEC WITH FWW AND SUPERVISION 30STS TEST: 3 WITH MARTINA UE ASSIST AND NO FOAM ON CHAIR. GIRTH MEASUREMENTS: NT (EVAL: PATELLA 43cm, 6 SUPRA PATELLA 50.5cm, 6 INFRA PATELLA 38cm) ROM: L KNEE AROM: 2-0-118 DEGREES FLEXION IN SITTING WITH HEEL SLIDE. STRENGTH: HIP FLEX L 15.4 LBS, KNEE EXT L 14.1 LBS, KNEE FLEX L 19.5 LBS (STRAIN GUARGE PEAK FORCE). Plan Plan Plan: CONTINUE PT 2X'S A WK X 4-6 WKS X 10-12 VISITS FOR: 1. Restore knee flexion and extension range of motion 2. Improve strength of quads, hamstrings and hips in both open and closed chain. 3. Progress gait with LRD as tolerated. Re-integrate functional mobility with stairs and transfers. May use VASO and ice as needed for edema. Balance/Gait/Functional tests Balance/Special Test Scores WOMAC Total Score: 79 WOMAC Percentage: 17.7100 Goals Goals Goal 1:: PATIENT WILL COMPLETE TUG IN < 20 SECS WITH CANE TO DEMONSTRATE IMPROVED GAIT STABILITY Goal Time Frame: 4-6 Weeks Goal Progress: Progressing Goal 2:: PATIENT WILL COMPLETE 6 STANDS IN 30 SECS WITH ONE BLUE FOAM ON CHAIR AND HANDS ON KNEES TO DEMONSTRATE IMPROVED FUNCTIONAL STRENGTH Goal Time Frame: 4-6 Weeks Goal Progress: Progressing Goal 3:: PATIENT WILL HAVE DECREASED EDEMA IN LLE. Goal Time Frame: 4-6 Weeks Goal 4:: PATIENT WILL HAVE INCREASED R KNEE ROM TO AT LEAST 0-120 DEG FLEXION. Goal Time Frame: 6-8 Weeks Goal Progress: Progressing Goal 5:: PATIENT WILL BE ABLE TO NEGOTIATE STEPS WITH 1 HR WITH RECIPROCAL PATTERN WITHOUT LIMITATIONS. Goal Time Frame: 6-8 Weeks Goal Progress: Progressing Goal 6:: PATIENT WILL SCORE AT LEAST 15 POINTS BETTER ON WOMAC QUESTIONNAIRE Goal Time Frame: 6-8 Weeks Anticipated Interventions Anticipated Interventions Patient/Client Instruction: Educate patient on: Condition, Plan of Care and Risk Factors For the Purpose of:: To improve self management Therapeutic Exercise to Include: Strength training, Balance training, Flexibilty training, Gait and locomotor training, Neuromotor development and Active ROM For the Purpose of:: To decrease pain, To decrease swelling/inflammation, To increase ROM, To improve nutrient delivery to tissue, To improve muscle performance and motor function, To increase tolerance to activity/condition/position, To improve performance and independence with ADL's, To decrease level of supervision to perform tasks, To improve ability of physical actions for home/community/work/leisure, To improve gait and locomotor functions, To decrease soft tissue restriction, To increase flexibility/ROM, To improve safety with gait, To improve safety and To improve self management Manual Therapy Techniques to Include: Mobilization and Soft tissue mobilization For the Purpose of:: To decrease pain, To decrease swelling/inflammation, To increase ROM and To improve muscle performance and motor function Cryotherapy (ice pack, ice massage): Yes Vasopneumatic device: Yes For the Purpose of:: To decrease pain and To decrease swelling/inflammation Re-Evaluation Ending Re-evaluation ending: Please do not hesitate to contact me at [phone] by phone or if you have questions or concerns regarding this new plan of care! Sincerely, Michelle Catalan, PT, Cert MDT
--- NOTE | 2024-12-18 11:55 | HP.PTDCSUM_ITS ---
Discharge Summary D/C summary: It has been my pleasure to treat ANITA RICE referred by Dr. Krishna Greenfield DO, with the diagnosis of S/P L TKA for a total of 16 visit(s). Discharge Date: 12/18/24 Please see the following information for a summary of their discharge status. Subjective Subjective: PATIENT REPORTS HER R KNEE IS STILL BUCKLING ON HER AND IT DID YESTERDAY MAKING IT DIFFICULT TO DO SOME OF HER EX'S AT TIMES. PATIENT REPORTS DR. GREENFIELD X-RAY'D HER R KNEE AND HE SAID IT ISN'T BAD HER L ONE WAS AND SHE DOES NOT NEED TO HAVE SURGERY ON IT AT THIS POINT. PATIENT REPORTS SHE IS STILL HAVING VERTIGO FROM COVID AND SHE DOESN'T THINK THAT HELPS. IT USUALLY OCCURS WITH GETTING OUT OF BED AND SOMETIMES WITH GETTING OUT OF A CHAIR. PATIENT REPORTS HER L LEG IS GETTING STRONGER AND SHE ISN'T GETTING IT CAUGHT IN THE COVERS ANYMORE. SHE ALSO STATES SHE IS MAKING 3 MEALS A DAY NOW. SHE REPORTS SHE LIKES HAVING THE WALKER WITH HER FOR WHEN HER KNEE SANDRA BUT SHE DOESN'T LEAN ON IT MUCH OTHERWISE. Pain Left Knee: Pain Intensity (Out of 10): 6 Overall Improvement % Improvement: 78 Objective Objective/Function: PATIENT WAS SEEN TODAY FOR RE-ASSESSMENT OF PROGRESS TOWARD THE SET PT GOALS AND THE NEED FOR FURTHER PHYSICAL THERAPY VS READINESS FOR DISCHARGE. THIS PATIENTS PROGRESS IS STARTING TO PLATEAU IN TERMS OF GAIT AND L KNEE ROM BUT SHE HAS MADE GOOD GAINS IN TERMS OF L LE STRENGTH SINCE LAST RE- CHECK. AT THIS POINT LLE STRENGTH HAS MET OR EXCEEDED R LE STRENGTH MEASUREM ENTS TAKEN AT [facility]. SHE IS INDEP WITH A HEP AND APPROPRIATE FOR DISCHARGE TO HEP FOR LLE BUT WOULD BENEFIT FROM PHYSICIAN FOLLOW UP WITH R LE NEEDED. INSTRUCTED PATIENT TO CONTINUE WALKER FOR SAFETY UNTIL FOLLOW UP WITH DR. GREENFIELD. PATIENT AND DAUGHTER AGREEABLE. ALSO RECOMMENDED SEEING PCP FOR VERTIGO AND AGAIN THEY ARE AGREEABLE. MODIFICATIONS ALSO MADE TO HEP TO DECREASE STRESS AND PAIN ON R LE. PATIENT AND DAUGHTER COMMUNICATED A GOOD UNDERSTANDING OF ALL INSTRUCTIONS GIVEN. PATIENT PLANS TO SEE HOW SHE DOES WITH HEP MODIFICATIONS MADE TODAY AND DISCUSS R KNEE WITH ORHTO AT L KNEE FOLLOW UP NEXT MONTH NEEDED. UPON EXAM TODAY: THIS PATIENT AMBULATES INDEP'LY INTO PT TODAY WITH A FWW, DECREASED CADANCE AND NO LOB FROM LOBBY TO PT EVGA ROOM. PATIENT DEMO'S INDEP AND SAFE GAIT WITH WALKER TODAY WITH VERY LIGHT UE ASSIST AND NO SOB. DAUGHTER CINDY PRESENT THROUGHOUT SESSION. OVER-ALL PATIENT IS MUCH LESS DEPENDENT ON WALKER DURING GAIT NOW FOR BALANCE BUT IT IS STILL NEEDED FOR SAFETY DUE TO RANDOM BUCKLING OF R (NON-SURGICAL KNEE). SHE IS STILL MARTINA UE DEPENDENT TO TRANSFER FROM SIT TO STAND AND REVERSE. TRANSFERS SIT TO SUPINE AND REVERSE ARE INDEP AND SHE CAN GET HER LLE IN AND OUT OF THE BED WITHOUT UE ASSIST. WOMAC SCORE: 60 TU.50 SEC WITH FWW AND SUPERVISION 30STS TEST: 3 WITH MARTINA UE ASSIST AND NO FOAM ON CHAIR. DENIES VERTIGO TODAY WITH STS TESTING. GIRTH MEASUREMENTS: NT (EVAL: PATELLA 43cm, 6 SUPRA PATELLA 50.5cm, 6 INFRA PATELLA 38cm) ROM: L KNEE AROM: 0-0-118 DEGREES FLEXION IN SITTING WITH HEEL SLIDE. STRENGTH: HIP FLEX L 28.1 LBS, KNEE EXT L 19.9 LBS, KNEE FLEX L 27.6 LBS (STRAIN GUARGE PEAK FORCE). Goals Goal 1:: PATIENT WILL COMPLETE TUG IN < 20 SECS WITH CANE TO DEMONSTRATE IMPROVED GAIT STABILITY Goal Progress: Not Met Goal 2:: PATIENT WILL COMPLETE 6 STANDS IN 30 SECS WITH ONE BLUE FOAM ON CHAIR AND HANDS ON KNEES TO DEMONSTRATE IMPROVED FUNCTIONAL STRENGTH Goal Progress: Not Met Goal 3:: PATIENT WILL HAVE DECREASED EDEMA IN LLE. Goal 4:: PATIENT WILL HAVE INCREASED R KNEE ROM TO AT LEAST 0-120 DEG FLEXION. Goal Progress: Not Met Goal 5:: PATIENT WILL BE ABLE TO NEGOTIATE STEPS WITH 1 HR WITH RECIPROCAL PATTERN WITHOUT LIMITATIONS. Goal Progress: Not Met Goal 6:: PATIENT WILL SCORE AT LEAST 15 POINTS BETTER ON WOMAC QUESTIONNAIRE Goal Progress: Goal Met Plan Plan: D/C TO INDEP HEP AND PHYSICIAN FOLLOW UP. D/C Information d/c sentence: If there are questions or concerns regarding this patient's physical therapy, please feel free to call me at [phone]. Thank you for the referral of this patient. Sincerely, Michelle Catalan, PT, Cert MDT Balance/Gait/Functional tests Balance/Special Test Scores WOMAC Total Score: 60 WOMAC Percentage: 37.5000 Improvement % Improvement: 78
== END 2024-12-18 13:53 | disposition home or self-care (01) ==
LOC: PT 10:30
PROVIDERS: PCP Internal Medicine; Referring Provider Orthopaedic Surgery; Visit Provider Orthopaedic Surgery
DX: Z96.659 Presence of unspecified artificial knee joint (principal)
CPT/HCPCS: 97016; 97110; 97140; 97162; 97530

== ENCOUNTER → 2025-02-25 | Outpatient (CLI) | payer MEDICARE, SELFPAY ==
[2025-02-25 11:26] LABS: Absolute Lymphocyte Count 2.97 X10^3/uL (0.83-4.51); Absolute Neutrophil Count 4.9 X10^3/uL (2.0-7.7); Basophil# 0.05 X10^3/uL; Basophil% 0.6 % (0-1); Eosinophil# 0.22 X10^3/uL; Eosinophils% 2.5 % (0-5); Hematocrit 47.5 % (37-47); Hemoglobin 15.3 g/dL (12.0-15.0); Lymphocyte # 2.97 X10^3/ul (0.83-4.51); Lymphocyte % 34.1 % (19-41); Mean Corp Hgb Conc 32.2 g/dL (32-36); Mean Corpuscular Hgb 28.2 pg (27.0-32.0); Mean Corpuscular Volume 87.5 fL (81-99); Mean Platelet Vol. 10.1 fl (6.2-12.0); Monocyte# 0.57 X10^3/uL; Monocyte% 6.5 % (0-10); NRBC Flagged by Analyzer 0 % (0-5); Neutrophil # 4.88 X10^3/uL (2.7-7.7); Neutrophil % 56.1 % (47-70); Platelet Count 275 K/mm3 (150-450); RBC Distribution Width SD 47.9 fl (35.1-43.9); Red Blood Count 5.43 M/mm3 (4.2-5.4); White Blood Count 8.7 K/mm3 (4.4-11.0)
[2025-02-25 11:49] LABS: Cholesterol 201 mg/dL (<=200); Free T3 2.7 pg/mL (2.18-3.98); High Density Lipoprotein 54 mg/dL; Low Density Lipoprotein Calc. 112 mg/dL; Thyroid Stim Hormone (TSH) 0.877 uIU/mL (0.300-4.200); Triglycerides 175 mg/dL; Very Low Density Lipoprotein 35 mg/dL (5-40); Vitamin D,25 Hydroxy 30.7 ng/mL (30-100); cholesterol:hdl ratio screen 3.73
[2025-02-25 11:50] LABS: ALB/GLOB Ratio 1.3 RATIO (0.9-2.4); AST(SGOT) 14 U/L (<=31); Alanine Aminotransfer ALT/SGPT 15 U/L (<=34); Albumin, Serum 4.3 g/dL (3.4-4.8); Alkaline Phosphatase 56 U/L (35-104); Anion Gap 10 (5-15); BUN 24 mg/dL (4-19); Calcium,Total 9.5 mg/dL (7.6-11.0); Carbon Dioxide 27.5 mmol/L (21.0-32.0); Chloride 103 mmol/L (98-108); Creatinine, Serum 0.92 mg/dL (0.70-1.20); EST Glomerular Filtration Rate 61 (>60); Globulin 3.3 g/dL (2.2-4.2); Glucose 106 mg/dL (70-99); Potassium 4.8 mmol/L (3.3-5.1); Protein, Total 7.6 g/dL (5.9-8.4); Sodium Level 140 mmol/L (133-145); Total Bilirubin 0.38 mg/dL (0.00-1.30)
== END | disposition home or self-care (01) ==
LOC: MTLAB 08:20
PROVIDERS: PCP Internal Medicine; Referring Provider Internal Medicine; Visit Provider Internal Medicine
DX: Z13.220 Encounter for screening for lipoid disorders (principal); I48.91 Unspecified atrial fibrillation; E78.2 Mixed hyperlipidemia; I38 Endocarditis, valve unspecified; E55.9 Vitamin D deficiency, unspecified; Z79.899 Other long term (current) drug therapy
CPT/HCPCS: 36415; 80053; 80061; 82306; 84439; 84443; 84481; 85025

== ENCOUNTER 2025-06-24 09:39 | Emergency (ER) | payer MEDICARE, SELFPAY ==
[2025-06-24 09:39] VITALS: BP 152/69; PULSE 70; RESP 14; TEMP 36.2; O2SAT 95; BMI 31.6
[2025-06-24 10:18] LABS: Hematocrit 46.0 % (37-47); Hemoglobin 15.0 g/dL (12.0-15.0); Immature Granulocytes Count 0.030 X10^3/uL (0.0-0.0); Mean Corp Hgb Conc 32.6 g/dL (32-36); Mean Corpuscular Volume 89.3 fL (81-99); Mean Platelet Vol. 9.1 fl (6.2-12.0); NRBC Flagged by Analyzer 0 % (0-5); Platelet Count 232 K/mm3 (150-450); RBC Distribution Width CV 13.2 % (11.6-14.6); RBC Distribution Width SD 43.1 fl (35.1-43.9); Red Blood Count 5.15 M/mm3 (4.2-5.4); White Blood Count 7.9 K/mm3 (4.4-11.0)
[2025-06-24 10:39] VITALS: PULSE 66; RESP 13
[2025-06-24 10:50] LABS: Anion Gap 12 (5-15); BUN 15 mg/dL (4-19); BUN/Creat Ratio 20.2 RATIO (10-20); Calcium,Total 9.3 mg/dL (7.6-11.0); Carbon Dioxide 25.8 mmol/L (21.0-32.0); Chloride 103 mmol/L (98-108); Estimated Creatinine Clearance 59.70 ml/min (50-250); Glucose 112 mg/dL (70-99); Potassium 4.5 mmol/L (3.3-5.1)
--- NOTE | 2025-06-24 10:57 | EDS_ITS ---
HPI History of Present Illness Chief Complaint: Weakness Detail of Chief Complaint: Tremors the past several days and weakness Informant: patient and family Onset/Context/Timing Onset: Days Context: Sudden Onset Timing: Intermittent Quality: Tremors Location: Extremities Current Severity: Gone Maximum Severity: Moderate Worsened by: When asked to hold the position. Patient was unaware until my exam Relieved by: Having her arms or legs on the bed Associated Symptoms Associated Symptoms: Reports weakness. Narrative Narrative: Patient is an 85-year-old woman. She has history of degenerative arthritis, status post knee replacement several months ago, atrial fibrillation on amiodarone, nonrheumatic mitral valve regurgitation, secondary pulmonary hypertension, ectopic atrial tachycardia as well as wide-complex tachycardia. She presents because of tremors the past couple of days she also complains of weakness. She complains of a vertex headache. The headache is worse when she is supine. She has chronic nasal congestion/rhinorrhea. She denies double vision, blurred vision loss of vision. She has chronic ringing in her ears. Has not problems with hearing on the right side. This is a problem that she has had for greater than a year. She denies problems with speech or swallowing. She denies chest pain, pressure, tightness or heaviness. She denies shortness of breath, dyspnea exertion orthopnea. She denies abdominal pain, nausea, vomiting or diarrhea. She denies dysuria, frequency, urgency or hematuria. She denies paresthesia, anesthesia or motor weakness. She denies problems with coordination or balance. She has had no change in her medication as far as dosage, discontinuation of medication or start of new medicine. Furthermore, she denies history of Parkinson's disease. Prior similar symptoms: No Recent Illness/Hospitalization: No [facility] Medical History Preop exam for internal medicine Wears glasses Depression Osteoarthritis History of IBS Non-smoker History of Holter monitoring History of stress test History of echocardiogram Cardiology follow-up encounter Chest pain History of atrial fibrillation Benign positional vertigo Wide-complex tachycardia Ventricular ectopy Skin cancer Osteopenia Migraines Gallstones Cataract UTI (urinary tract infection) Mixed hyperlipidemia Prolapsed uterus IBS (irritable bowel syndrome) Nonrheumatic tricuspid valve regurgitation Non-rheumatic mitral regurgitation Valvular heart disease Secondary pulmonary hypertension Ectopic atrial tachycardia Premature ventricular contraction Premature atrial contractions Home Medications ?Medication ?Instructions ?Recorded ?Last Taken ?Type estradiol 0.01% (0.1 mg/gram) 1 g vaginal 2XW 09/26/19 10/21/24 History vaginal cream multivitamin 1 tab PO DAILY 09/26/1906/14 History cholecalciferol (vitamin D3) 50 50 mcg PO DAILY 06/23/25 History mcg (2,000 unit) capsule amiodarone 200 mg tablet 100 mg (1/2 x 200 mg) PO DEWAYNE LY #45 09/19/24 06/24/25 Rx tabs acetaminophen 500 mg tablet 1,000 mg (2 x 500 mg) PO Q 6H PRN 10/24/24 06/23/25 Rx knee pain #90 tabs escitalopram oxalate 5 mg tablet 5 mg PO DAILY #90 tab s 03/01/25 06/21/25 Rx (Lexapro) metoprolol tartrate 25 mg tablet 25 mg PO BID #180 tab s 03/06/25 06/24/25 Rx apixaban 5 mg tablet (Eliquis) 5 mg PO BID #60 tabs 06/24/25 Rx amlodipine 5 mg tablet 5 mg PO DAILY #90 tabs 05/1506/23/25 Rx camphor-menthol 0.2 %-3.5 % 1 applic topical DAILY leon nt pain 06/24/25 06/23/25 History topical gel (Arctic Relief) diclofenac sodium 1 % topical gel 2 g topical PRN join t pain 06/24/25 06/23/25 History diphenhydramine 25 1 tab PO QHS PRN sleep 06/2406/23/25 History mg-acetaminophen 500 mg tablet (Tylenol PM Extra Strength) Allergy/AdvReac Type Severity Reaction Status Date / Time crab Allergy Intermediate Diarrhea Verified 06/24/25 09:39 tuna oil Allergy Mild Vomiting Verified 06/24/25 09:39 adhesive tape Allergy Hives Verified 06/24/25 09:39 codeine Allergy Chest Verified 06/24/25 09:39 tightness rosuvastatin (From Crestor) AdvReac Severe myalgias Verified 06/24/25 09:39 Sulfa (Sulfonamide AdvReac Mild Other Verified 06/24/25 09:39 Antibiotics) egg (eggs) AdvReac Unknown Diarrhea Verified 06/24/25 09:39 Iodine and Iodide Containing AdvReac Unknown Unknown Verified 06/24/25 09:39 Produc azithromycin AdvReac Abd Verified 06/24/25 09:39 cramps/diarrhea shrimp AdvReac Vomiting Verified 06/24/25 09:39 Family History Father COPD (chronic obstructive pulmonary disease) Mother CVA (cerebral vascular accident) Brother Myocardial infarction, Onset Age: 42 Brother Sudden cardiac Myocardial infarction, Onset Age: 64 Brother Myocardial infarction, Onset Age: 55 Sister TIA (transient ischemic attack) Heart valve disease Surgical History S/P total knee arthroplasty History of uterine suspension procedure History of oophorectomy, unilateral History of unilateral salpingectomy Hx of cataract surgery History of cholecystectomy Social History adopted: No household members: spouse housing: house current occupational status: retired Smoking Status: Never smoker alcohol intake: never substance use type: does not use what type of physical activity do you participate in: walking robert/judaism: Rastafari seatbelt use: always do you feel safe at home: Yes ROS ROS ED Constitutional Constitutional ED: Denies chills, fever(s), subjective or sweats Eyes Eyes: Denies blurry vision, change in vision or diplopia ENT ENT ED: Reports other Details: Detailed HPI narrative ; Denies rhinorrhea Cardiovascular Cardiovascular: Denies chest pain, orthopnea, palpitations or paroxysmal nocturnal dyspnea Respiratory/Chest Respiratory/Chest: Denies cough, dyspnea, dyspnea on exertion, orthopnea or paroxysmal nocturnal dyspnea Gastrointestinal Gastrointestinal: Denies abdominal pain, diarrhea, nausea or vomiting Genitourinary Genitourinary ED: Denies dysuria, hematuria or urinary frequency Musculoskeletal Musculoskeletal: Denies arthralgias, back pain or myalgias Integumentary Denies rash Neurologic Neurologic: Reports headache(s) and weakness; Denies paresthesias Psychiatric Psychiatric: Denies anxiety or depression Hematologic/Lymphatic Hematologic/Lymphatic: Reports systems reviewed and no addt'l complaints, except as documented EXAM Physical Exam Const Vital Signs: 06/24/25 09:39 06/24/25 09:55 Temperature 97.1 F L Temperature Source Temporal Pulse Rate 70 Respiratory Rate 14 Respiratory Effort Normal Respiratory Pattern Normal Blood Pressure 152/69 H Blood Pressure Mean 96 Pulse Ox 95 Oxygen Delivery Method Room Air Positive well nourished and well developed General Appearance ED: well developed and NAD; Negative for cyanotic or diapho retic HEENT Reports moist mucous membranes HEENT Narrative: Head is atraumatic normocephalic. Ears normal. Nares patent. Posterior phar ynx erythema or exudate. Uvula midline. No deviation with protrusion. Eyes PERRL and EOMs intact bilaterally Eyes Narrative: There is no nystagmus. General Eye ED: Negative for pale conjunctiva or scleral icterus Neck no lymphadenopathy, supple and no JVD Neck Narrative: There is no carotid bruit noted right or left. Chest Wall inspection of chest normal and palpation of chest normal Resp normal respiratory effort and clear to auscultation bilaterally Cardio regular rate, S1 normal heart sound, S2 normal heart sound and no murmurs Rhythm: abnormal rhythm irregularly irregular GI normal to inspection, nondistended, normoactive bowel sounds, non-tender, non- distended and no masses; Negative for hepatosplenomegaly Extremity normal to inspection Extremity Narrative: 1 to 2 mm pitting edema bilaterally and symmetric. There is no discoloration of the leg. There is no leg vein distention, palpable cords or tenderness on the distribution of deep venous system. General Extremety ED: Yes edema General Extremity: edema Neuro oriented x3, CN's II-XII intact bilaterally and no sensory deficits noted Neuro Narrative: Bicep, brachialis, tricep, patella and ankle reflex are 1+ and symmetric. There is no clonus Babinski sign noted. There is no dysmetria. Patient has a postural tremor. Sensorium / Orientation: alert Motor Exam: strength 5/5 throughout Skin no rashes or lesions noted, no wounds and skin turgor normal Skin Narrative: There is bruising noted. MDM MDM MDM Narrative Medical decision making narrative: Differential would be Parkinson disease, postural White tremor, kinetic tremor versus essential tremor. Since this occurs when she holds her extremities out this would be consistent with a postural tremor.. She complains of generalized weakness CBC was obtained/white count H&H and electrolytes to assess but specifically potassium and sodium. Lab Data Attestation: I reviewed the patient's lab results. Lab results narrative: CBC is normal. BMP is unremarkable. Glucose slight elevated 112. Labs: Laboratory Results - last 24 hr 06/24/25 10:06 WBC 7.9 RBC 5.15 Hgb 15.0 Hct 46.0 MCV 89.3 MCH 29.1 MCHC 32.6 RDW Std Deviation 43.1 RDW Coeff of Lia 13.2 Plt Count 232 MPV 9.1 Immature Gran % (Auto) 0.400 Neut % (Auto) 59.2 Lymph % (Auto) 27.8 [place] % (Auto) 8.7 Eos % (Auto) 3.3 Baso % (Auto) 0.6 Absolute Neuts (auto) 4.7 Absolute Lymphs (auto) 2.19 Nucleated RBC % 0 Sodium 141 Potassium 4.5 Chloride 103 Carbon Dioxide 25.8 Anion Gap 12 BUN 15 Creatinine 0.76 Estim Creat Clear Calc 59.70 Est GFR (MDRD) Non-Af 76 BUN/Creatinine Ratio 20.2 H Glucose 112 H Calcium 9.3 Treatment and Re-Evaluation :: When I entered the room to inform patient of results her granddaughter who is a nurse informing that she contacted the heart group. They requested that I speak with them. Since Dr. Goins is on-call I contacted him. He was made aware of why the patient presented. What my workup included and what my thoughts are regarding the tremor. Plan is to discharge to home. 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, [facility] current use of amiodarone, Atrial fibrillation, chronic Instructions: Essential Tremor (ET), Functional Movement Disorders Prescriptions: No Action estradiol 0.01 % (0.1 mg/gram) cream 1 g VAGINAL 2XW multivitamin Tablet 1 tab PO DAILY cholecalciferol (vitamin D3) 50 mcg (2,000 unit) capsule 50 mcg PO DAILY metoprolol tartrate 25 mg tablet 25 mg PO BID Qty: 180 3RF diphenhydramine-acetaminophen [Tylenol PM Extra Strength] 25-500 mg tablet 1 tab PO QHS PRN (Reason: sleep) diclofenac sodium 1 % gel 2 g topical PRN Arctic Relief 0.2-3.5 % gel 1 applic topical DAILY Rx Instructions: rub in gently and completely acetaminophen 500 mg tablet 1,000 mg PO Q6H PRN (Reason: knee pain) Qty: 90 0RF amiodarone 200 mg tablet 100 mg PO DAILY Qty: 45 3RF escitalopram oxalate [Lexapro] 5 mg tablet 5 mg PO DAILY Qty: 90 1RF Patient Comments: pt stopped taking a few days ago; thinks it's causing her to be shaky Eliquis 5 mg tablet 5 mg PO BID Qty: 60 11RF amlodipine 5 mg tablet 5 mg PO DAILY Qty: 90 3RF Primary Care Provider: Modesta Nicole Referrals: Modesta Nicole MD [Primary Care Provider] - 5-7 Days Print Language: Monegasque Disposition Disposition: Home, Self Care
[2025-06-24 11:00] VITALS: PULSE 66; RESP 13
[2025-06-24 11:39] VITALS: BP 152/69; PULSE 66; RESP 13; TEMP 36.2; O2SAT 95
== END 2025-06-24 11:40 | disposition home or self-care (01) ==
LOC: ED 11:26
PROVIDERS: Emergency Provider Emergency Medicine; PCP Internal Medicine; Visit Provider Emergency Medicine
DX: R25.1 Tremor, unspecified (principal); I48.20 Chronic atrial fibrillation, unspecified; R53.1 Weakness; E78.2 Mixed hyperlipidemia; Z79.899 Other long term (current) drug therapy; Z79.01 Long term (current) use of anticoagulants
CPT/HCPCS: 80048; 85025; 99284; A4216

== ENCOUNTER → 2025-07-10 | Outpatient (CLI) | payer MEDICARE, SELFPAY ==
--- NOTE | 2025-07-10 09:32 | RAD_ITS ---
EXAM: XR Abdomen, 1 View CLINICAL INDICATION: LEFT RENAL STONE TECHNIQUE: Frontal supine view of the abdomen/pelvis. COMPARISON: No relevant prior studies available. FINDINGS: GASTROINTESTINAL TRACT: Fecal retention in the colon consistent with constipation. No dilation. ORGANS: Subtle calcific density of the inferior pole of the left kidney could be nephrolithiasis. BONES/JOINTS: Unremarkable. No acute fracture. RAD/Abdomen Single View IMPRESSION: 1. Fecal retention in the colon consistent with constipation. 2. Subtle calcific density of the inferior pole of the left kidney could be ne phrolithiasis. Reading Location: [id number]
== END | disposition home or self-care (01) ==
LOC: MTRAD 09:32
PROVIDERS: PCP Internal Medicine; Referring Provider Urology; Visit Provider Urology
DX: N20.0 Calculus of kidney (principal)
CPT/HCPCS: 74018